=== PATIENT | female | born 1965 | race Caucasian/White ===

== ENCOUNTER 2019-11-06 20:23 | Emergency (ER) | payer BC, SELFPAY ==
[2019-11-06] VITALS (26 sets, daily range): BP systolic 165–167; BP diastolic 79–98; PULSE 105; RESP 18; O2SAT 92–98; BMI 27.3
--- NOTE | 2019-11-06 20:43 | ED_ITS ---
Entered by Cheryl Duran, acting as scribe for James Oneal DO HPI - URI/Sore Throat General: Chief Complaint: Upper Respiratory Infection Stated Complaint: COUGH W/ BLOOD Time Seen by Provider: 11/06/19 20:43 Source: patient Mode of arrival: ambulatory Limitations: no limitations History of Present Illness: HPI Narrative: 54 yo Female presents to ED with complaint of coughing up blood. Pt states that she has been coughing a lot recently. Pt states that her stomach has been queasy all day and she had multiple, loose bowel movements. Pt states that she was coughing and felt something that felt like a spray bottle on the back of her throat. Pt states that she has some bloody sputum and had blood on her tongue. Pt states that the last time she had symptoms like this, she had pneumonia. MD elicited complaint: cough Onset (ago): day(s) Consistency: progressively worsening Pain scale (0-10): 0 Description of mucous: bloody Able to tolerate fluids by mouth: Yes Exacerbating factors: other (coughing) Relieving factors: nothing Associated symptoms: Reports cough and diarrhea; Deny fever(s), nausea, sore throat or vomiting Treatments prior to arrival: none Review of Systems General: Reports: 10 or more systems reviewed and unremarkable except in HPI and below Const: Denies: fever Resp: Reports: productive cough and coughing up blood GI: Reports: diarrhea; Denies: nausea or vomiting [facility] ED PFSH: Social History Smoking and tobacco status: current every day smoker Physical Exam Const: COMMON NORMALS: no apparent distress, average body habitus, oriented x3, no limitations, healthy appearing, alert and well nourished HENMT: COMMON NORMALS: normocephalic, head/scalp atraumatic, hearing grossly normal bilaterally, external ears normal, EAC's normal, TM's normal bilaterally, external nose normal, nasal mucous membranes and turbinates normal, moist oral mucous membranes, oropharynx normal, dentition normal and gingiva normal HEAD & SCALP: normocephalic and atraumatic NOSE: external nose normal and nasal mucous membranes and turbinates normal EXTERNAL EAR: Yes external ears normal EXTERNAL AUDITORY CANAL: EAC's normal TYMPANIC MEMBRANE: TM's normal bilaterally Eye: COMMON NORMALS: PERRL, EOMs intact bilaterally, conjunctivae normal, no scleral icterus, no papilledema, normal visual ordonez by confrontation and fundi normal bilaterally CONJUNCTIVA: Yes conjunctivae normal PUPIL: Yes PERRL DIRECT OPHTHALMOSCOPY: Yes no papilledema and Yes fundi normal bilaterally Neck/C-Spine: COMMON NORMALS: full ROM, no lymphadenopathy, supple, no meningeal signs, no JVD, thyroid normal and no carotid bruits THYROID: thyroid normal Chest: COMMONS NORMALS: inspection of chest normal and palpation of chest normal Resp: COMMON NORMALS: normal respiratory effort, no retractions, no use of accessory muscles, clear to auscultation bilaterally and percussion normal AUSCULTATION: clear to auscultation bilaterally PERCUSSION: percussion normal Cardio: COMMON NORMALS: no JVD, regular rate, regular rhythm, S1 normal heart sound, S2 normal heart sound, no gallops, no clicks, no murmurs, no rub and peripheral pulses 2+ throughout RATE: regular rate RHYTHM: regular rhythm HEART SOUNDS: S1 normal and S2 normal PERIPHERAL PULSES: pulses 2+ throughout GI: COMMON NORMALS: normal to inspection, nondistended, normoactive bowel sounds, soft to palpation, non-tender, no hepatosplenomegaly, no masses and no bruits PALPATION: Yes soft and Yes no hepatosplenomegaly : COMMON NORMALS: Yes no CVA tenderness and Yes external appearance normal BLADDER/KIDNEY EXAM: Yes no CVA tenderness Back/Pelvis: COMMON NORMALS: no CVA tenderness, thoracic and lumbar spine normal to inspection, no thoracic nor lumbar tenderness, thoraco-lumbar ROM normal and straight leg raise negative bilaterally Extremity: COMMON NORMALS: normal to inspection, full ROM, normal capillary refill, no joint enlargement, no clubbing, cyanosis or edema, no calf tenderness and no pedal edema Neuro: COMMON NORMALS: oriented x3 SENSORIUM/ORIENTATION: Yes alert MENINGEAL SIGNS: Yes no meningeal signs Skin: COMMON NORMALS: no rashes or lesions noted, no wounds, skin turgor normal, no jaundice, no petechiae and no mottling GENERAL SKIN EXAM: no rashes or lesions noted and turgor normal Course Vital Signs: Vital signs: Vital Signs Pulse Rate 105 H 11/06/19 20:43 Respiratory Rate 18 11/06/19 20:43 Blood Pressure 167/98 11/06/19 20:43 Pulse Oximetry 97 11/06/19 20:43 MDM - URI/Sore Throat Lab Data: Labs: Lab Results 11/06/19 11/06/19 11/06/19 Range/Units 20:50 20:50 20:50 WBC 13.6 H (4.0-10.0) 10^3/ uL RBC 4.75 (4.1-5.3) 10^6/u L Hgb 14.4 (11.5-15.3) g/dL Hct 43.0 (37.0-47.0) % MCV 90.5 (81-99) fL MCH 30.3 (28.0-34.0) pg MCHC 33.5 (30.0-36.0) g/dL RDW 12.7 (12.1-15.1) % Plt Count 396 (130-400) 10^3/c mm MPV 9.1 (7.4-10.4) fL Neut % (Auto) 62.9 % Lymph % (Auto) 26.1 % [place] % (Auto) 7.1 % Eos % (Auto) 2.3 % Baso % (Auto) 1.2 % Neut # (Auto) 8.5 H (1.8-7.7) 10^3/u L Lymph # (Auto) 3.5 (0.8-4.8) 10^3/u L [place] # (Auto) 1.0 H (0.2-0.9) 10^3/u L Eos # (Auto) 0.3 (0.0-0.8) 10^3/u L Baso # (Auto) 0.2 H (0.0-0.1) 10^3/u L Nucleated RBC % (a uto) 0 % Nucleated RBCs # 0.0 /100WBC Sodium 139 (136-145) mmol/L Potassium 3.8 (3.5-5.1) mmol/L Chloride 101 (98-107) mmol/L Carbon Dioxide 26 (22-29) mmol/L Anion Gap 15.8 (5-19) BUN 8 (6-20) mg/dL Creatinine 0.8 (0.5-0.9) mg/dL GFR Calculation 74.7 L (90-130) mL/min Glucose 125 H (65-115) mg/dL Calculated Osmolal ity 285 (285-295) mOsm/k g Lactate 1.0 (0.5-2.2) mmol/L Calcium 9.9 (8.5-10.5) mg/dL Total Bilirubin 0.2 (0.15-1.2) mg/dL AST 18 (0-32) U/L ALT 20 (0-33) U/L Alkaline Phosphata se 92 (35-105) IU/L Total Protein 7.2 (6.6-8.7) g/dL Albumin 4.6 (3.5-5.2) g/dL Globulin 2.6 (1.3-4.6) g/dL Influenza Type A A g (Negative) POC Influenza B Ag (Negative) 11/06/19 Range/Units 20:50 WBC (4.0-10.0) 10^3/ uL RBC (4.1-5.3) 10^6/u L Hgb (11.5-15.3) g/dL Hct (37.0-47.0) % MCV (81-99) fL MCH (28.0-34.0) pg MCHC (30.0-36.0) g/dL RDW (12.1-15.1) % Plt Count (130-400) 10^3/c mm MPV (7.4-10.4) fL Neut % (Auto) % Lymph % (Auto) % [place] % (Auto) % Eos % (Auto) % Baso % (Auto) % Neut # (Auto) (1.8-7.7) 10^3/u L Lymph # (Auto) (0.8-4.8) 10^3/u L [place] # (Auto) (0.2-0.9) 10^3/u L Eos # (Auto) (0.0-0.8) 10^3/u L Baso # (Auto) (0.0-0.1) 10^3/u L Nucleated RBC % (a uto) % Nucleated RBCs # /100WBC Sodium (136-145) mmol/L Potassium (3.5-5.1) mmol/L Chloride (98-107) mmol/L Carbon Dioxide (22-29) mmol/L Anion Gap (5-19) BUN (6-20) mg/dL Creatinine (0.5-0.9) mg/dL GFR Calculation (90-130) mL/min Glucose (65-115) mg/dL Calculated Osmolal ity (285-295) mOsm/k g Lactate (0.5-2.2) mmol/L Calcium (8.5-10.5) mg/dL Total Bilirubin (0.15-1.2) mg/dL AST (0-32) U/L ALT (0-33) U/L Alkaline Phosphata se (35-105) IU/L Total Protein (6.6-8.7) g/dL Albumin (3.5-5.2) g/dL Globulin (1.3-4.6) g/dL Influenza Type A A g Negative (Negative) POC Influenza B Ag Negative (Negative) Discharge Plan Discharge Patient Disposition: Home, Self-Care Clinical Impression: Cough with hemoptysis, Bronchitis, COPD (chronic obstructive pulmonary disease) with acute bronchitis Sinusitis Qualifiers: Sinusitis location: maxillary Chronicity: acute Recurrence: non-recurrent Qualified Code(s): J01.00 - Acute maxillary sinusitis, unspecified Upper respiratory infection Qualifiers: URI type: unspecified URI Qualified Code(s): J06.9 - Acute upper respiratory infection, unspecified Condition: Stable Prescriptions: New clindamycin HCl 300 mg capsule 300 mg PO Q6H 10 Days Qty: 40 RF: 0 prednisone 10 mg tablets,dose pack See Rx Instructions .ROUTE .COMPLEX Qty: 21 RF: 0 albuterol sulfate 90 mcg/actuation HFA aerosol inhaler 2 inh INHALATION Q6H PRN (Reason: shortness of breath or wheezing) Qty: 8.5 RF: 0 Discharge Orders: Discharge Order (Routine); Ordered 11/06/19 Ordered By: James Oneal Referrals: Yakov Edwards MD [Family Provider] - Patient Instructions: Acute Bronchitis (ED), Acute Hemoptysis (ED) Coding Level of Care Code ED Rn Interventional for Chg Fwd Exam Comprehensive The documentation recorded by the Roger martinez Carmen, accurately reflects the service I personally performed and the decisions made by Kimmy cerna Donald P, Nov 06, 2019 20:23
--- NOTE | 2019-11-06 20:43 | XRR_ITS ---
PROCEDURE INFORMATION: Exam: XR Chest, 1 View Exam date and time: 11/06/2019 9:34 PM Age: 54 years old Clinical indication: Patient HX: C/O cough, scratchy throat and bloody sputum TECHNIQUE: Imaging protocol: XR of the chest Views: 1 view. COMPARISON: CR Chest 2 views* [id number] 10/12/2014 9:11 AM FINDINGS: Lungs: Unremarkable. No consolidation. Pleural space: Unremarkable. No pleural effusion. No pneumothorax. Heart/Mediastinum: Unremarkable. No cardiomegaly. Bones/joints: Unremarkable. XR/XR chest 1V portable [id number] IMPRESSION: No acute findings.
--- NOTE | 2019-11-06 21:04 | CTR_ITS ---
PROCEDURE INFORMATION: Exam: CT Neck With Contrast Exam date and time: 11/06/2019 9:21 PM Age: 54 years old Clinical indication: Patient HX: C/O scratchy throat and bloody sputum; Additional info: Hemoptysis TECHNIQUE: Imaging protocol: Computed tomography images of the neck with intravenous contrast. Total DLP: 661.96 mGy-cm Radiation optimization: All CT scans at this facility use at least one of these dose optimization techniques: automated exposure control; mA and/or kV adjustment per patient size (includes targeted exams where dose is matched to clinical indication); or iterative reconstruction. Contrast material: OMNI 300; Contrast volume: 95 ml; Contrast route: 22G; COMPARISON: No relevant prior studies available. FINDINGS: Sinuses: Inflammatory changes in the right maxillary and right sphenoid sinuses. Nasopharynx: Unremarkable. Oropharynx: Calcifications or calculi within the left tonsil. The bilateral tonsils appear mildly prominent in size. Hypopharynx: Unremarkable. Larynx: Unremarkable. Normal epiglottis. Retropharyngeal space: Unremarkable. Submandibular/Parotid glands: Normal. Glands are normal in size. Thyroid: Normal. No enlarged or calcified nodules. Lymph nodes: Mediastinal lymph nodes measuring up to 1.0 cm short axis are most likely reactive. Trachea: Visualized trachea is unremarkable. Lungs: Severe centrilobular emphysema. Patchy airspace opacities in both upper lobes, right greater than left. Dental: Multiple missing upper and lower teeth. Bones/joints: Unremarkable. No acute fracture. Soft tissues: Unremarkable. CT/CT neck w con* [id number] IMPRESSION: 1. Mild symmetric prominence of the palatine tonsils could be infectious or inflammatory. 2. Patchy opacities in both upper lobes is most likely multifocal pneumonia. 3. Prominent mediastinal lymph nodes are most likely reactive. 4. Severe emphysema. Radiation Dose CTDIVOL = (mGy): DLP = 661.96 (mGy-cm)
[2019-11-06 21:22] LABS: Basophils # 0.2 10^3/uL (0.0-0.1); Basophils % 1.2 %; Eosinophils # 0.3 10^3/uL (0.0-0.8); Eosinophils % 2.3 %; Hemoglobin 14.4 g/dL (11.5-15.3); Lymphocytes # 3.5 10^3/uL (0.8-4.8); Lymphocytes % 26.1 %; Mean Corpuscular HGB Conc 33.5 g/dL (30.0-36.0); Mean Corpuscular Hemoglobin 30.3 pg (28.0-34.0); Mean Corpuscular Volume 90.5 fL (81-99); Mean Platelet Volume 9.1 fL (7.4-10.4); Monocytes % 7.1 %; Neutrophils # 8.5 10^3/uL (1.8-7.7); Neutrophils % 62.9 %; Nucleated Red Blood Cells % 0 %; Platelet Count 396 10^3/cmm (130-400); Red Blood Count 4.75 10^6/uL (4.1-5.3); Red Cell Distribution Width 12.7 % (12.1-15.1); White Blood Count 13.6 10^3/uL (4.0-10.0)
[2019-11-06] MEDS: iohexol 300 mg/mL 100 mL Btl IV (21:29)
[2019-11-06 21:32] LABS: Influenza A by IFA Negative (Negative); Influenza B by IFA Negative (Negative)
[2019-11-06 21:37] LABS: Alanine Aminotransferase 20 U/L (0-33); Albumin Level 4.6 g/dL (3.5-5.2); Alkaline Phosphatase 92 IU/L (35-105); Anion Gap 15.8 (5-19); Aspartate Amino Transferase 18 U/L (0-32); Blood Urea Nitrogen 8 mg/dL (6-20); Calcium 9.9 mg/dL (8.5-10.5); Carbon Dioxide 26 mmol/L (22-29); Chloride 101 mmol/L (98-107); Globulin 2.6 g/dL (1.3-4.6); Glomerular Filtration Rate 74.7 mL/min (90-130); Glucose 125 mg/dL (65-115); Osmolality Calculated 285 mOsm/kg (285-295); Potassium 3.8 mmol/L (3.5-5.1); Sodium 139 mmol/L (136-145); Total Bilirubin 0.2 mg/dL (0.15-1.2); Total Protein 7.2 g/dL (6.6-8.7)
[2019-11-06 22:12] LABS: Add Urine Microscopic? YES; Bilirubin Urine Neg (NEGATIVE); Blood Urine 2+ (Negative); Glucose Urine UA Norm (Normal); Ketones Urine Negative (Negative); Leukocyte Esterase Urine Negative (Negative); Nitrate Urine Negative (Negative); Protein Urine Neg (Negative); Urine Appearance Clear (CLEAR); Urine Color Straw (Yellow); Urobilinogen Urine Norm (Negative); pH Urine 8 (5-7)
[2019-11-06 22:13] LABS: Bacteria Urine TRACE; RBC Urine RARE /hpf (0-2); Squamous Epithelial Cell Urine RARE (0-5); Sulfosalicylic Acid Urine Negative; WBC Urine RARE /hpf (0-5)
[2019-11-06] MEDS: clindamycin 300 MG/50 ML PREMIX 100 MG IV (22:55)
== END 2019-11-06 23:40 | disposition home or self-care (01) ==
PROVIDERS: Emergency Provider Family Medicine; Family Provider Family Medicine
DX: R04.2 Hemoptysis (principal); J01.00 Acute maxillary sinusitis, unspecified; J06.9 Acute upper respiratory infection, unspecified; J43.9 Emphysema, unspecified
CPT/HCPCS: 12345; 70491; 71045; 80053; 81001; 83605; 85025; 87040; 87804; 96360; 96361; 96365; 99283; 99284; J3490; Q9967

== ENCOUNTER 2019-11-10 12:54 | Outpatient (CLI) | payer BC, SELFPAY ==
--- NOTE | 2019-11-10 13:09 | XR_ITS ---
WS: [id number] XR chest 2V* [id number] REASON FOR EXAM: ACUTE BRONCHITIS, HEMOPTYSIS FINDINGS: The heart and mediastinal interfaces normal. The lung ordonez are well aerated. There is no pneumonia, pleural effusion, pulmonary edema, mass effe ct, The hilum and apices normal. No osseous abnormalities seen. XR/XR chest 2V* [id number] IMPRESSION: Negative chest for acute pathology.
== END 2019-11-10 12:55 | disposition home or self-care (01) ==
LOC: RADWPI 13:06
PROVIDERS: Family Provider Family Medicine; PCP Family Medicine; Visit Provider Nurse Practitioner Family
DX: J20.9 Acute bronchitis, unspecified (principal); R04.2 Hemoptysis
CPT/HCPCS: 71046

== ENCOUNTER 2019-11-10 17:21 | Emergency (ER) | payer BC, SELFPAY ==
[2019-11-10 17:46] VITALS: BP 167/98; PULSE 104; RESP 16; TEMP 37.1; O2SAT 96; BMI 28.3
--- NOTE | 2019-11-10 18:05 | ED_ITS ---
HPI - URI/Sore Throat General: Chief Complaint: General Medical Stated Complaint: Coughing up blood Time Seen by Provider: 11/10/19 17:58 Source: patient Mode of arrival: ambulatory Limitations: no limitations History of Present Illness: HPI Narrative: Patient is a 54-year-old female who presents to ED today with complaints of coughing up blood. Patient tells me she began having a cough approximately two week ago. She was seen here 4 days ago and diagnosed with bronchitis and placed on clindamycin, albuterol, and prednisone. CXR at that visit was negative. She did receive a CT neck (apparently was complaining more of scratchy throat) which showed: 1. Mild symmetric prominence of the palatine tonsils could be infectious or inflammatory. 2. Patchy opacities in both upper lobes is most likely multifocal pneumonia. 3. Prominent mediastinal lymph nodes are most likely reactive. 4. Severe emphysema. Patient reports the clindamycin is making her itch and the hemoptysis is worsening. She does not report shortness of breath unless she is coughing. She has not had any recent surgeries, no recent long travel, no hormonal therapy, no swelling to her lower extremities. Associated symptoms: Deny abdominal pain, chills, chest pain, diarrhea, fever(s), headache(s), nasal congestion, nausea or vomiting Review of Systems Const: Denies: fever, chills, body aches, change in appetite, change in weight , fatigue or malaise Eyes: Denies: change in vision, blurry vision or photophobia ENMT: Denies: throat pain, enlarged tonsils, painful swallowing, nasal discharge or nasal congestion Card: Denies: chest pain, palpitations, irregular heart rhythm, edema, swelling of feet/ankles, lightheadedness, syncope, pre-syncope, shortness of breath on exertion, shortness of breath when lying down or leg pain with exertion Resp: Reports: shortness of breath (only when coughing per patient), productive cough, change in phlegm color, coughing up blood and chest congestion; Denies: pain on inspiration GI: Denies: abdominal pain, nausea, vomiting or diarrhea : Denies: flank pain, difficulty urinating, painful urination, urinary frequency or urinary urgency Musc: Denies: neck pain or back pain Skin/Breast: Denies: rash Neuro: Denies: headache, numbness in extremities, weakness in extremities or changes in sensation PFSH ED PFSH: Social History Smoking and tobacco status: current every day smoker Physical Exam Const: COMMON NORMALS: average body habitus, oriented x3, no limitations, healthy appearing, alert and well nourished OTHER: pt at one point during exam went to sink after hard spell of coughing and bright red hemoptysis was noted HENMT: COMMON NORMALS: normocephalic, head/scalp atraumatic, hearing grossly normal bilaterally, external ears normal, EAC's normal, TM's normal bilaterally, external nose normal, nasal mucous membranes and turbinates normal, moist oral mucous membranes, oropharynx normal and gingiva normal HEAD & SCALP: normocephalic and atraumatic NOSE: external nose normal and nasal mucous membranes and turbinates normal EXTERNAL EAR: Yes external ears normal EXTERNAL AUDITORY CANAL: EAC's normal TYMPANIC MEMBRANE: TM's normal bilaterally MOUTH: other (dental bridge to top) Eye: COMMON NORMALS: PERRL and EOMs intact bilaterally PUPIL: Yes PERRL Resp: COMMON NORMALS: normal respiratory effort and clear to auscultation bilaterally AUSCULTATION: clear to auscultation bilaterally Cardio: COMMON NORMALS: regular rate and regular rhythm RATE: regular rate RHYTHM: regular rhythm GI: COMMON NORMALS: normal to inspection, nondistended, normoactive bowel sounds, soft to palpation, non-tender, no hepatosplenomegaly and no masses PALPATION: Yes soft and Yes no hepatosplenomegaly Extremity: COMMON NORMALS: normal to inspection, full ROM, no clubbing, cyanosis or edema, no calf tenderness and no pedal edema Neuro: COMMON NORMALS: oriented x3 SENSORIUM/ORIENTATION: Yes alert Skin: COMMON NORMALS: no rashes or lesions noted GENERAL SKIN EXAM: no rashes or lesions noted Course Vital Signs: Vital signs: Vital Signs Temperature 98.7 F 11/10/19 17:46 Pulse Rate 96 11/10/19 18:33 Respiratory Rate 16 11/10/19 17:46 Blood Pressure 167/98 11/10/19 17:46 Pulse Oximetry 96 11/10/19 18:33 MDM - URI/Sore Throat 2 Lab Data: Labs: Lab Results 11/10/19 11/10/19 Range/Units 18:20 18:20 WBC 9.7 (4.0-10.0) 10^3/ uL RBC 4.43 (4.1-5.3) 10^6/u L Hgb 13.5 (11.5-15.3) g/dL Hct 41.7 (37.0-47.0) % MCV 94.1 (81-99) fL MCH 30.5 (28.0-34.0) pg MCHC 32.4 (30.0-36.0) g/dL RDW 12.0 L (12.1-15.1) % Plt Count 265 (130-400) 10^3/c mm MPV 11.2 H (7.4-10.4) fL Neut % (Auto) 74.4 % Lymph % (Auto) 16.3 % [place] % (Auto) 7.4 % Eos % (Auto) 0.9 % Baso % (Auto) 0.5 % Neut # (Auto) 7.2 (1.8-7.7) 10^3/u L Lymph # (Auto) 1.6 (0.8-4.8) 10^3/u L [place] # (Auto) 0.7 (0.2-0.9) 10^3/u L Eos # (Auto) 0.1 (0.0-0.8) 10^3/u L Baso # (Auto) 0.1 (0.0-0.1) 10^3/u L Nucleated RBC % (a uto) 0 % Nucleated RBCs # 0.0 /100WBC Sodium 144 (136-145) mmol/L Potassium 4.0 (3.5-5.1) mmol/L Chloride 104 (98-107) mmol/L Carbon Dioxide 28 (22-29) mmol/L Anion Gap 16.0 (5-19) BUN 15 (6-20) mg/dL Creatinine 1.0 H (0.5-0.9) mg/dL GFR Calculation 57.8 L (90-130) mL/min Glucose 113 (65-115) mg/dL Calculated Osmolal ity 295 (285-295) mOsm/k g Calcium 9.5 (8.5-10.5) mg/dL Total Bilirubin 0.3 (0.15-1.2) mg/dL AST 16 (0-32) U/L ALT 13 (0-33) U/L Alkaline Phosphata se 76 (35-105) IU/L Total Protein 7.5 (6.6-8.7) g/dL Albumin 4.4 (3.5-5.2) g/dL Globulin 3.1 (1.3-4.6) g/dL Imaging Data^: CXR: Radiologist's impression: [address] [address] XRay Report Signed Patient: Valerie Traylor Unit #: [id number] : 1965 Age/Sex: 54 / F ADM Date: 11/10/19 Loc: [facility] Room/Bed: Attending Dr: Joelle Sterling BEHAVIORAL HEALTH TECH Ordering Provider/Ordering MD: Joelle Sterling RN Date of Service: 11/10/19 Procedure(s): XR chest 2V* [id number] Accession Number(s): [id number] Report Number: [id number] WS: [id number] XR chest 2V* [id number] REASON FOR EXAM: ACUTE BRONCHITIS, HEMOPTYSIS FINDINGS: The heart and mediastinal interfaces normal. The lung ordonez are well aerated. There is no pneumonia, pleural effusion, pulmonary edema, mass effect, The hilum and apices normal. No osseous abnormalities seen. XR/XR chest 2V* [id number] IMPRESSION: Negative chest for acute pathology. Dictated By: Elijah Smith DO Signed By: Eiljah Smith DO Signed Date/Time: 11/10/19 1356 DD/ 1355 Discharge Plan Discharge Patient Disposition: Home, Self-Care Clinical Impression: Bronchitis Condition: Stable Prescriptions: New Levaquin 750 mg tablet 750 mg PO DAILY 7 Days Qty: 7 RF: 0 Discontinued clindamycin HCl 300 mg capsule 300 mg PO Q6H 10 Days Qty: 40 RF: 0 No Action prednisone 10 mg tablets,dose pack See Rx Instructions .ROUTE .COMPLEX Qty: 21 RF: 0 albuterol sulfate 90 mcg/actuation HFA aerosol inhaler 2 inh INHALATION Q6H PRN (Reason: shortness of breath or wheezing) Qty: 8.5 RF: 0 Discharge Orders: Discharge Order (Routine); Ordered 11/10/19 Ordered By: Helen Dale Referrals: Yakov Edwards MD [Primary Care Provider] - Discharge Diet: Usual diet Discharge Activity: Increase activity as tolerated Activity Restrictions/Additional Instructions: As discussed your CXR appears normal. CTA of your chest is negative for pulmonary embolus (blood clot). There was an area of scarring/nodule to your right upper lobe that needs to be followed up through Dr. Edwards's office in 6 to 12 months. I will go ahead and place you on a different antibiotic. You may continue the albuterol and prednisone as directed. Please follow-up with PCP in 3 to 5 days if you do not seem to be improving. He may return to the emergency department anytime for worsening symptoms. Coding Level of Care Code ED Seamer [employer] for Cristal Love Exam Comprehensive
[2019-11-10 18:33] VITALS: PULSE 96; O2SAT 96
[2019-11-10 18:33] LABS: Basophils # 0.1 10^3/uL (0.0-0.1); Basophils % 0.5 %; Eosinophils # 0.1 10^3/uL (0.0-0.8); Eosinophils % 0.9 %; Hematocrit 41.7 % (37.0-47.0); Hemoglobin 13.5 g/dL (11.5-15.3); Lymphocytes # 1.6 10^3/uL (0.8-4.8); Lymphocytes % 16.3 %; Mean Corpuscular HGB Conc 32.4 g/dL (30.0-36.0); Mean Corpuscular Hemoglobin 30.5 pg (28.0-34.0); Mean Corpuscular Volume 94.1 fL (81-99); Mean Platelet Volume 11.2 fL (7.4-10.4); Monocytes # 0.7 10^3/uL (0.2-0.9); Monocytes % 7.4 %; Neutrophils # 7.2 10^3/uL (1.8-7.7); Neutrophils % 74.4 %; Nucleated Red Blood Cells % 0 %; Platelet Count 265 10^3/cmm (130-400); Red Blood Count 4.43 10^6/uL (4.1-5.3); White Blood Count 9.7 10^3/uL (4.0-10.0)
[2019-11-10 18:51] LABS: Alanine Aminotransferase 13 U/L (0-33); Albumin Level 4.4 g/dL (3.5-5.2); Alkaline Phosphatase 76 IU/L (35-105); Aspartate Amino Transferase 16 U/L (0-32); Blood Urea Nitrogen 15 mg/dL (6-20); Calcium 9.5 mg/dL (8.5-10.5); Carbon Dioxide 28 mmol/L (22-29); Chloride 104 mmol/L (98-107); Globulin 3.1 g/dL (1.3-4.6); Glomerular Filtration Rate 57.8 mL/min (90-130); Glucose 113 mg/dL (65-115); Osmolality Calculated 295 mOsm/kg (285-295); Sodium 144 mmol/L (136-145); Total Bilirubin 0.3 mg/dL (0.15-1.2); Total Protein 7.5 g/dL (6.6-8.7)
--- NOTE | 2019-11-10 19:00 | CTR_ITS ---
PROCEDURE INFORMATION: Exam: CT Angiography Chest With Contrast Exam date and time: 11/10/2019 7:39 PM Age: 54 years old Clinical indication: Shortness of breath; Additional info: Hemoptysis; Cough; SOB TECHNIQUE: Imaging protocol: Computed tomographic angiography of the chest with intravenous contrast. 3D rendering: MIP and/or 3D reconstructed images were created by the technologist. Total DLP: 609.51 mGy-cm Radiation optimization: All CT scans at this facility use at least one of these dose optimization techniques: automated exposure control; mA and/or kV adjustment per patient size (includes targeted exams where dose is matched to clinical indication); or iterative reconstruction. Contrast material: OMNI 350; Contrast volume: 95 ml; Contrast route: LT FOREARM; COMPARISON: CTA Chest-Pulmonary Emb [id number] 10/04/2014 5:09 PM FINDINGS: Pulmonary arteries: There is no evidence of filling defects within the pulmonary arterial circulation to suggest pulmonary embolism. Aorta: Unremarkable. No aortic aneurysm. No aortic dissection. Lungs: There are advanced changes of centrilobular emphysema in the apical regions. There is some mild scarring in the right upper lobe which is new from 10/04/2014 including a 6 mm mm nodule like area such as on axial image number 17 of series 3. Pleural space: Unremarkable. No pneumothorax. No pleural effusion. Heart: Unremarkable. No cardiomegaly. No pericardial effusion. Lymph nodes: Unremarkable. No enlarged lymph nodes. Bones/joints: Unremarkable. No acute fracture. Soft tissues: Unremarkable. CT/CT angio chest PE protcl [id number] IMPRESSION: 1. No evidence of pulmonary embolism. 2. COPD. 3. New nodular area of scarring in the right upper lobe. For patients at low risk (minimal or absent history of smoking and of other known risk factors), recommend CT at 6-12 months, then consider CT at 18-24 months. For patients at high risk (history of smoking or of other known risk factors), recommend CT at 6-12 months, then CT at 18-24 months. (Lizett et al., Fleischner Society, 2017) Radiation Dose CTDIVOL = (mGy): DLP = 609.51 (mGy-cm)
[2019-11-10] MEDS: iohexol 350 mg/mL 100 mL Btl IV (19:55)
[2019-11-10] MEDS: levoFLOXacin 750 mg Tablet PO (20:40)
--- NOTE | 2019-11-10 20:57 | PC.NURSE ---
Agree with assessment.
[2019-11-10 20:58] VITALS: BP 153/83; PULSE 81; RESP 18; TEMP 37.1; O2SAT 96
== END 2019-11-10 20:58 | disposition home or self-care (01) ==
PROVIDERS: Emergency Provider Physician Assistant; Family Provider Family Medicine; PCP Family Medicine
DX: J40 Bronchitis, not specified as acute or chronic (principal); F17.210 Nicotine dependence, cigarettes, uncomplicated; J98.4 Other disorders of lung; J43.9 Emphysema, unspecified
CPT/HCPCS: 12345; 36415; 71275; 80053; 85025; 99282; 99283; Q9967

== ENCOUNTER 2020-02-08 19:36 | Emergency (ER) | payer BC, SELFPAY ==
[2020-02-08 19:42] VITALS: BP 158/85; PULSE 89; RESP 16; TEMP 36.3; O2SAT 97; BMI 28.3
--- NOTE | 2020-02-08 19:55 | XR_ITS ---
WS: [id number] XR KUB [id number] REASON FOR EXAM: abd pain FINDINGS: Nonspecific gas and feces throughout the colon are seen. No unusual calcifications the region of the kidneys, ureters, or bladder. No air-fluid levels. XR/XR KUB [id number] IMPRESSION: Negative abdominal survey.
--- NOTE | 2020-02-08 19:55 | US_ITS ---
WS: [id number] ABDOMINAL ULTRASOUND LIMITED REASON FOR VISIT: abd pain TECHNIQUE: Grayscale and Doppler ultrasound examination of the abdomen. FINDINGS: Pancreas: Within normal limits Abdominal aorta and IVC: Within normal limits Liver: Liver measures 12.1 cm in length. Normal hepatopedal circulation. Gallbladder: Gallbladder wall thickness measures 0.2 mm. No stones, common bile duct 0.21 cm. Right kidney: Right kidney measures 10.5 cm x 5.1 cm x 4.3 cm. No hydronephrosis no calcification. US/US gall bladder [id number] IMPRESSION: Normal right upper quadrant ultrasound.
--- NOTE | 2020-02-08 19:58 | W.ED.NAVMDI ---
HPI - Nausea/Vomiting/Diarrhea General: Chief complaint: Nausea/Vomiting/Diarrhea Stated complaint: diarrhea, general pain Time Seen by Provider: 02/08/20 19:45 Source: patient Mode of arrival: ambulatory History of Present Illness: HPI Narrative: 55-year-old female states for last 2 weeks she has had abdominal cramping especially in her upper abdomen. She states she is also had diarrhea that is worsened. She denies any fevers. She states her pain is currently crampy in nature and rates it a 2 out of 10. She denies any worsening or improving factors. MD elicited complaint: nausea, vomiting and abdominal pain Associated nausea: Yes Associated symtoms: Reports nausea; Denies chest pain, dysuria or headache(s) Review of Systems Const: Denies: fever(s), chills, body aches or change in appetite Eyes: Denies: blurry vision or eye discomfort ENMT: Denies: throat pain or dental pain Card: Denies: chest pain Resp: Denies: dyspnea GI: Reports: abdominal pain, nausea and vomiting; Denies: diarrhea : Denies: dysuria Musc: Denies: neck pain or back pain Skin/Breast: Denies: rash Neuro: Denies: headache(s) Psych: Denies: depression Ulisses/Lymph: Denies: easy bruising All/Imm: Denies: urticaria PFSH ED PFSH: Medical History GERD (gastroesophageal reflux disease) Hyperlipidemia Surgical History H/O sinus surgery Hx of section Family History Father Lung disease COPD Social History Smoking and tobacco status: current every day smoker cigarettes Packs smoked per day: 0.5 Years cigarettes smoked: 35 Quit status (tobacco): considering quitting Smoking risk assessment/counseling performed?: Yes Alcohol intake: never Lives independently: Yes Current occupational status: employed 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 Current occupational exposures/hazards: 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) History of recent travel: No Current gender identity: Female Physical Exam Const: COMMON NORMALS: no acute distress, patient oriented x3 and healthy appearing HENMT: COMMON NORMALS: normocephalic and atraumatic HEAD & SCALP: normocephalic and atraumatic Eye: COMMON NORMALS: Equal, round and reactive pupils present and EOMs intact bilaterally PUPIL: Yes Equal, round and reactive pupils present Neck/C-Spine: COMMON NORMALS: full ROM and supple Chest: COMMONS NORMALS: normal inspection of the chest and normal palpation of entire chest wall Resp: COMMON NORMALS: normal respiratory effort, No retractions, No use of accessory muscles and clear to auscultation bilaterally AUSCULTATION: clear to auscultation bilaterally Cardio: COMMON NORMALS: regular rate, regular rhythm and No murmurs present (Cardio) RATE: regular rate RHYTHM: regular rhythm GI: COMMON NORMALS: Normal to inspection, nondistended, normoactive bowel sounds present, Soft to palpation, non-tender and no masses PALPATION: Yes Soft to palpation Extremity: COMMON NORMALS: normal to inspection and full ROM Neuro: COMMON NORMALS: patient oriented x3, moves all extremities and no focal motor deficits Psych: COMMON NORMALS: mental status grossly normal, Normal thought process present and cooperative THOUGHT PROCESS: Normal thought process present Skin: COMMON NORMALS: no rashes or lesions noted and no wounds GENERAL SKIN EXAM: no rashes or lesions noted Course Vital Signs: Vital signs: Vital Signs Temperature 98.4 F 02/08/20 20:21 Pulse Rate 79 02/08/20 21:15 Respiratory Rate 14 02/08/20 21:15 Blood Pressure 140/99 02/08/20 21:15 Pulse Oximetry 97 02/08/20 21:15 MDM - Nausea/Vomiting/Diarrhea MDM Narrative: Medical decision making narrative: Valerie presents here with diarrhea and abdominal cramping over the last 2 weeks. Her ultrasound along with lab work are normal. Initial and repeat abdominal exams are benign. Patient prescribed Bentyl along with Zofran and is to follow-up with primary care doctor in 3 to 5 days return if worsening. Patient understands and agrees to plan. Lab Data: Labs: Lab Results 02/08/20 02/08/20 Range/Units 20:15 20:15 WBC 10.6 H (4.0-10.0) 10^3/ uL RBC 4.56 (4.1-5.3) 10^6/u L Hgb 13.6 (11.5-15.3) g/dL Hct 41.3 (37.0-47.0) % MCV 90.6 (81-99) fL MCH 29.8 (28.0-34.0) pg MCHC 32.9 (30.0-36.0) g/dL RDW 12.6 (12.1-15.1) % Plt Count 371 (130-400) 10^3/c mm MPV 9.3 (7.4-10.4) fL Neut % (Auto) 60.5 % Lymph % (Auto) 28.4 % Dent % (Auto) 7.7 % Eos % (Auto) 2.0 % Baso % (Auto) 0.9 % Neut # (Auto) 6.4 (1.8-7.7) 10^3/u L Lymph # (Auto) 3.0 (0.8-4.8) 10^3/u L Dent # (Auto) 0.8 (0.2-0.9) 10^3/u L Eos # (Auto) 0.2 (0.0-0.8) 10^3/u L Baso # (Auto) 0.1 (0.0-0.1) 10^3/u L Nucleated RBC % (a uto) 0 % Nucleated RBCs # 0.0 /100WBC Sodium 142 (136-145) mmol/L Potassium 3.8 (3.5-5.1) mmol/L Chloride 105 (98-107) mmol/L Carbon Dioxide 25 (22-29) mmol/L Anion Gap 15.8 (5-19) BUN 8 (6-20) mg/dL Creatinine 0.8 (0.5-0.9) mg/dL GFR Calculation 74.5 L (90-130) mL/min Glucose 146 H (65-115) mg/dL Calculated Osmolal ity 293 (285-295) mOsm/k g Calcium 9.5 (8.5-10.5) mg/dL Total Bilirubin 0.2 (0.15-1.2) mg/dL AST 17 (0-32) U/L ALT 13 (0-33) U/L Alkaline Phosphata se 83 (35-105) IU/L Total Protein 6.5 L (6.6-8.7) g/dL Albumin 4.3 (3.5-5.2) g/dL Globulin 2.2 (1.3-4.6) g/dL Lipase 41 (13-60) U/L Imaging Data^: KUB: Attestation: I personally reviewed and interpreted this imaging study as follows: My impression: no acute abnormality US: Attestation: I personally reviewed and interpreted this imaging study as follows: My impression: no acute findings Discharge Plan Discharge Patient Disposition: Home, Self-Care Clinical Impression: Abdominal pain Qualifiers: Abdominal location: generalized Qualified Code(s): R10.84 - Generalized abdominal pain Diarrhea Qualifiers: Diarrhea type: unspecified type Qualified Code(s): R19.7 - Diarrhea, unspecified Condition: Stable Prescriptions: New ondansetron 4 mg tablet,disintegrating 4 mg PO Q6H PRN (Reason: nausea and vomiting) Qty: 14 RF: 0 dicyclomine 20 mg tablet 20 mg PO TID Qty: 20 RF: 1 No Action omeprazole 20 mg tablet,delayed release (DR/EC) 20 mg PO DAILY RF: 0 atorvastatin 10 mg tablet 10 mg PO DAILY RF: 0 Multiple Vitamin, Womens Tablet 1 tab PO DAILY RF: 0 Spiriva with HandiHaler 18 mcg capsule, w/inhalation device 1 cap INHALATION DAILY 180 Days Qty: 60 RF: 6 Discharge Orders: Discharge Order (Routine); Ordered 02/08/20 Ordered By: Alfred Stevens Referrals: Yakov Edwards MD [Primary Care Provider] - 1-3 days Discharge Diet: Advance as tolerated Discharge Activity: Resume usual activity Patient Instructions: Abdominal Pain (ED) Discharge Date/Time: 02/08/20 21:16 Coding Level of Care Code ED Dry Goods Clerk for Chg Fwd Exam Comprehensive
[2020-02-08] MEDS: diphenoxylate/atropine Tablet 1 TAB PO (20:14)
[2020-02-08] MEDS: ondansetron 2 mg/ML SDV 2 mL 4 MG IVP (20:14)
[2020-02-08] MEDS: sodium chloride 0.9% 1,000 ML 999 ML IV (20:15)
[2020-02-08 20:21] VITALS: BP 148/74; PULSE 95; RESP 18; TEMP 36.9; O2SAT 97
[2020-02-08 20:32] LABS: Basophils # 0.1 10^3/uL (0.0-0.1); Basophils % 0.9 %; Eosinophils # 0.2 10^3/uL (0.0-0.8); Hematocrit 41.3 % (37.0-47.0); Hemoglobin 13.6 g/dL (11.5-15.3); Lymphocytes % 28.4 %; Mean Corpuscular HGB Conc 32.9 g/dL (30.0-36.0); Mean Corpuscular Hemoglobin 29.8 pg (28.0-34.0); Mean Corpuscular Volume 90.6 fL (81-99); Mean Platelet Volume 9.3 fL (7.4-10.4); Monocytes # 0.8 10^3/uL (0.2-0.9); Monocytes % 7.7 %; Neutrophils # 6.4 10^3/uL (1.8-7.7); Neutrophils % 60.5 %; Nucleated Red Blood Cells % 0 %; Platelet Count 371 10^3/cmm (130-400); Red Blood Count 4.56 10^6/uL (4.1-5.3); Red Cell Distribution Width 12.6 % (12.1-15.1); White Blood Count 10.6 10^3/uL (4.0-10.0)
[2020-02-08 20:43] LABS: Alanine Aminotransferase 13 U/L (0-33); Albumin Level 4.3 g/dL (3.5-5.2); Alkaline Phosphatase 83 IU/L (35-105); Anion Gap 15.8 (5-19); Aspartate Amino Transferase 17 U/L (0-32); Blood Urea Nitrogen 8 mg/dL (6-20); Calcium 9.5 mg/dL (8.5-10.5); Carbon Dioxide 25 mmol/L (22-29); Chloride 105 mmol/L (98-107); Globulin 2.2 g/dL (1.3-4.6); Glomerular Filtration Rate 74.5 mL/min (90-130); Glucose 146 mg/dL (65-115); Lipase 41 U/L (13-60); Osmolality Calculated 293 mOsm/kg (285-295); Potassium 3.8 mmol/L (3.5-5.1); Sodium 142 mmol/L (136-145); Total Bilirubin 0.2 mg/dL (0.15-1.2); Total Protein 6.5 g/dL (6.6-8.7)
[2020-02-08 21:15] VITALS: BP 140/99; PULSE 79; RESP 14; O2SAT 97
== END 2020-02-08 21:16 | disposition home or self-care (01) ==
PROVIDERS: Emergency Provider Emergency Medicine; Family Provider Family Medicine; PCP Family Medicine
DX: R10.84 Generalized abdominal pain (principal); R19.7 Diarrhea, unspecified; E78.5 Hyperlipidemia, unspecified; F17.210 Nicotine dependence, cigarettes, uncomplicated
CPT/HCPCS: 12345; 36415; 74018; 76705; 80053; 83690; 85025; 96360; 96361; 96374; 96375; 99283; J2405; J7030

== ENCOUNTER → 2020-04-24 11:31 | Outpatient (BNVA) | payer BC, SELFPAY | PROVIDERS: Family Provider Family Medicine; PCP Family Medicine; Visit Provider Internal Medicine | DX: Z01.812 Encounter for preprocedural laboratory examination (principal) | CPT/HCPCS: 87635 ==

== ENCOUNTER 2020-04-26 12:41 | Outpatient (CLI) | payer BC, SELFPAY ==
--- NOTE | 2020-04-26 13:23 | PFTS_ITS ---
Date of Study:04/26/20 Date of Dictation: MECHANICS: Forced vital capacity (FVC) is normal. Forced expiratory volume in one second (FEV1) is normal. FEV1/FVC is normal. FLOW VOLUME LOOP: Normal. LUNG VOLUMES: Total lung capacity (TLC) is normal. Residual volume (RV) is normal. DIFFUSING CAPACITY FOR CARBON MONOXIDE: Normal. INTERPRETATION: The pulmonary function tests are normal. Lung volumes are normal. Gas exchange (DLCO) is normal. MTDD
== END 2020-04-26 12:42 | disposition home or self-care (01) ==
LOC: RT 12:44
PROVIDERS: PCP Family Medicine; Visit Provider Internal Medicine Critical Care Medicine
DX: J43.9 Emphysema, unspecified (principal)
CPT/HCPCS: 94010; 94726; 94729

== ENCOUNTER 2020-05-29 08:30 | Outpatient (CLI) | payer BC, SELFPAY ==
--- NOTE | 2020-05-29 08:45 | CT_ITS ---
WS: [id number] CT scan of the chest without IV contrast, additional two-dimensional coronal and sagittal reconstruct ion was performed. 05/29/2020 Clinical Data: Right upper lobe pulmonary nodule Comparison: CT chest, 11/10/2019. DLP: 759.[address] scans at [facility] use at least one of these dose optimization techniques: automat ed exposure control; mA and/or kV adjustment per patient size (includes targeted exams where dose is matched to clinical indication); or iterative reconstruction. Findings: No nodules, masses or effusions are seen. Specifically no right upper lobe nodule is seen. There is m inimal right upper lobe parenchymal scarring. The heart size is normal with no pericardial effusion. Minimal coronary artery calcification is seen. The pulmonary arterial system and thoracic aorta demon strate no abnormalities or dilatations. There is no axillary or significant mediastinal adenopathy. The upper abdomen shows no abnormalities. CT/CT chest wo con [id number] Impression: 1. Negative CT scan of the chest. 2. Specifically no right upper lobe nodule is seen. 3. Minimal right upper lobe parenchymal scarring is present.
== END 2020-05-29 08:31 | disposition home or self-care (01) ==
LOC: RADWPI 08:34
PROVIDERS: PCP Family Medicine; Visit Provider Internal Medicine Critical Care Medicine
DX: R91.1 Solitary pulmonary nodule (principal)
CPT/HCPCS: 71250

== ENCOUNTER 2020-08-02 08:09 | Outpatient (CLI) | payer BC, SELFPAY ==
--- NOTE | 2020-08-02 08:20 | MM_ITS ---
WS: [id number] BILATERAL DIGITAL SCREENING MAMMOGRAPHY WITH CAD CLINICAL INFORMATION: SCREENING HISTORY: Screening mammogram. No current complaints. COMPARISON: TECHNIQUE: Bilateral CC and MLO views. FINDINGS: Scattered fibroglandular densities bilaterally. No suspicious focal mass, asymmetry, calcifications, or architectural distortion. No evidence of malignancy. Stable punctate calcifications. MM/[place] [id number] IMPRESSION: BI-RADS: 2-Benign FOLLOW UP: 1 Year Follow-up Recommend return to annual screening mammography.
== END 2020-08-02 08:10 | disposition home or self-care (01) ==
LOC: RADSHAW 08:11
PROVIDERS: PCP Family Medicine; Visit Provider Family Medicine
DX: Z12.31 Encounter for screening mammogram for malignant neoplasm of breast (principal)
CPT/HCPCS: 77067

== ENCOUNTER 2020-09-19 08:26 | Outpatient (CLI) | payer OTHER, SELFPAY ==
--- NOTE | 2020-09-19 08:37 | US_ITS ---
WS: [id number] ULTRASOUND ABDOMEN LIMITED CLINICAL INFORMATION: RUQ ABDOMINAL PAIN COMPARISON: None. FINDINGS: Liver Size: Normal. Craniocaudal length: 15.6 cm. Echogenicity: Normal. Surface nodularity: None. Mass (size and location): None. Bile ducts Intrahepatic ducts: Normal. Common bile duct diameter: 0.3 cm. Gallbladder Normal. Gallstones: None. Gallbladder sludge: None. Gallbladder wall thickening: None. Pericholecystic fluid: None. Sonographic Smiht sign: Absent. Pancreas Normal as visualized. Right kidney: Normal. Hydronephrosis: None. Size: 9.8 cm x 4.6 cm x 3.4 cm. Abdominal aorta and IVC Visualized portions are normal. Ascites: None. US/US gall bladder [id number] IMPRESSION: Normal abdominal ultrasound
== END 2020-09-19 08:27 | disposition home or self-care (01) ==
PROVIDERS: PCP Family Medicine; Visit Provider Family Medicine
DX: R10.11 Right upper quadrant pain (principal)
CPT/HCPCS: 76705

== ENCOUNTER 2021-05-25 08:43 | Outpatient (CLI) | payer OTHER, SELFPAY ==
--- NOTE | 2021-05-25 08:50 | CT_ITS ---
WS: [id number] LDCT LUNG CANCER SCREENING HISTORY: NICOTINE DEPENDENCE TECHNIQUE: Axial imaging performed from the apices to 1 cm below the costophrenic angles. Coronal and sagittal reformats are submitted with axial MIP series. All CT scans at [facility] use at least one of these dose optimization techniques: automated exposure control; mA and/or kV adjustment per patient size (includes targeted exams where dose is matched to clinical indication); or iterativ e reconstruction. DLP: 55.38 mGy.cm DIvol: 1.58 mGy COMPARISON: 05/29/2020 Diagnostic quality: Satisfactory Lung Nodules: 7 mm irregular nodule RIGHT upper lobe, image 99 of series 603. This is best seen on th e lateral projection. This may be an area of focal scar but appears more prominent since 11/10/2019. T here are additional areas of linear scarring in the upper lung field superimposed on background of mo derate centrilobular emphysema. Long-term stability of a 5 mm nodule anteriorly in the RIGHT lung, im age 89 series 3. Lungs: Chronic emphysema. Heart: Normal size. No effusion. Other findings: Normal aorta. Small hiatal hernia. CT/CT lung screening [id number] IMPRESSION: LUNG-RADS: 3-Probably Benign FOLLOW UP: 6 Month LDCT OTHER FINDINGS (S MODIFIER): None.
== END 2021-05-25 08:44 | disposition home or self-care (01) ==
PROVIDERS: PCP Family Medicine; Visit Provider Internal Medicine Critical Care Medicine
DX: Z12.2 Encounter for screening for malignant neoplasm of respiratory organs (principal); F17.210 Nicotine dependence, cigarettes, uncomplicated; K44.9 Diaphragmatic hernia without obstruction or gangrene; J43.9 Emphysema, unspecified
CPT/HCPCS: 71271

== ENCOUNTER 2021-12-12 12:48 | Outpatient (CLI) | payer BC, SELFPAY ==
--- NOTE | 2021-12-12 12:55 | CT_ITS ---
WS: [id number] LDCT LUNG CANCER SCREENING TECHNIQUE: Noncontrast CT of the chest with coronal and sagittal reformatted images. CLINICAL INFORMATION: Nicotine Dependence COMPARISON: CT lung screen May 25, 2021 DLP: 77.29 mGy.cm DIvol: Mean CTDIvol: 1.60 (mGy) All CT scans at [facility] use at least one of these dose optimization techniques: automat ed exposure control; mA and/or kV adjustment per patient size (includes targeted exams where dose is matched to clinical indication); or iterative reconstruction. Is unchanged. No new suspicious pulmonary parenchymal opacities. FINDINGS: Advanced chronic emphysematous changes. Scattered areas of fibrosis. No acute pulmonary infiltrates. Long-term stability 5 mm nodule anteriorly in the RIGHT upper lobe anteriorly with subpleural locatio n. Previously described spiculated nodule in the RIGHT upper lobe anterolaterally measuring 7 mm is u nchanged compared to previous. Additional similar-appearing area of focal parenchymal fibrosis or spi culation measuring 8 mm is also unchanged. Stable parenchymal fibrosis in the posterior RIGHT upper l obe Normal caliber thoracic aorta. No mediastinal or hilar lymphadenopathy. No axillary lymphadenopathy. Adrenal glands are normal. Small esophageal hiatal hernia. Mild thoracic kyphosis. CT/CT lung screening [id number] IMPRESSION: LUNG-RADS: 3-Probably Benign FOLLOW UP: 6 Month LDCT
== END 2021-12-12 12:49 | disposition home or self-care (01) ==
LOC: RAD 12:50
PROVIDERS: PCP Family Medicine; Visit Provider Internal Medicine Critical Care Medicine
DX: Z12.2 Encounter for screening for malignant neoplasm of respiratory organs (principal); F17.210 Nicotine dependence, cigarettes, uncomplicated
CPT/HCPCS: 71271

== ENCOUNTER → 2022-01-24 14:02 | Outpatient (BNVA) | payer BC, MEDICAID, SELFPAY | PROVIDERS: PCP Family Medicine; Visit Provider Family Medicine | DX: R07.9 Chest pain, unspecified (principal) | CPT/HCPCS: 80053; 84484; 85025; 85379 ==

== ENCOUNTER 2022-03-13 08:06 | Outpatient (CLI) | payer BC, MEDICAID, SELFPAY ==
--- NOTE | 2022-03-13 08:10 | MM_ITS ---
WS: [id number] BILATERAL SCREENING DIGITAL BREAST TOMOSYNTHESIS MAMMOGRAM WITH CAD HISTORY: SCREENING COMPARISON: 08/02/2020 and 12/08/2018 Bilateral CC and MLO views with tomosynthesis and synthetic mammography submitted. Computer aided det ection analyzed. Breast composition: There are scattered areas of fibroglandular density. No suspicious masses, microc alcifications or architectural distortion. MM/[place] [id number] IMPRESSION: BI-RADS: 1-Negative FOLLOW UP: 1 Year Follow-up
== END 2022-03-13 08:07 | disposition home or self-care (01) ==
PROVIDERS: PCP Family Medicine; Visit Provider Family Medicine
DX: Z12.31 Encounter for screening mammogram for malignant neoplasm of breast (principal)
CPT/HCPCS: 77063; 77067

== ENCOUNTER 2022-12-16 12:53 | Outpatient (CLI) | payer BC, MEDICAID, SELFPAY ==
--- NOTE | 2022-12-16 13:00 | CT_ITS ---
WS: [id number] LDCT LUNG CANCER SCREENING HISTORY: smoker TECHNIQUE: Axial imaging performed from the apices to 1 cm below the costophrenic angles. Coronal and sagittal reformats are submitted with axial MIP series. All CT scans at [facility] use at least one of these dose optimization techniques: automated exposure control; mA and/or kV adjustment per patient size (includes targeted exams where dose is matched to clinical indication); or iterativ e reconstruction. DLP: 65.42 mGy.cm DIvol: Mean CTDIvol: 1.30 (mGy) COMPARISON: 12/12/2021 Diagnostic quality: Satisfactory Lungs: Severe centrilobular emphysema. Hyperexpanded lungs. There are several new pulmonary nodules s jesi 12/12/2021. Spiculated nodule measures 8 mm RIGHT upper lobe. Additional 6 mm new nodule towards the lingula. 5 mm nodule LEFT lower lobe. 5 mm nodule medial RIGHT lower lobe. 4 mm nodule RIGHT lowe r lobe. Again noted is a spiculated 9 mm nodule RIGHT upper lobe which is probably not changed. Additional un changed 5 mm spiculated nodule RIGHT upper lobe. Focal irregular opacification RIGHT upper lobe measu res 10 mm. There are additional smaller scattered areas of low-attenuation and groundglass attenuatio n which are essentially stable. Heart: Normal size heart with no pericardial effusion.. Other findings: Mild atherosclerosis aorta. Small mediastinal and hilar lymph nodes. Small hiatal her mic. Hepatic steatosis. No adrenal mass. CT/CT lung screening [id number] IMPRESSION: LUNG-RADS: 4A-Probably Suspicious FOLLOW UP: 3 Month LDCT OTHER FINDINGS (S MODIFIER): None. Follow up can be done by [address] or PET/CT imaging. Metastatic or post inflammatory nodules. Consider evaluation also by pulmonology. Severe centrilobular emphysema.
== END 2022-12-16 12:54 | disposition home or self-care (01) ==
LOC: RAD 12:59
PROVIDERS: PCP Family Medicine; Visit Provider Internal Medicine Pulmonary Disease
DX: Z12.2 Encounter for screening for malignant neoplasm of respiratory organs (principal); F17.210 Nicotine dependence, cigarettes, uncomplicated
CPT/HCPCS: 36415; 71271; 82785; 85025; 86003

== ENCOUNTER → 2023-01-13 13:45 | Outpatient (BNVA) | payer BC, MEDICAID, SELFPAY | PROVIDERS: PCP Family Medicine; Visit Provider Nurse Practitioner | DX: R30.0 Dysuria (principal) | CPT/HCPCS: 81000; 87086 ==

== ENCOUNTER 2023-03-18 13:42 | Outpatient (CLI) | payer BC, MEDICAID, SELFPAY ==
--- NOTE | 2023-03-18 14:00 | CTR_ITS ---
PROCEDURE INFORMATION: Exam: CT Chest Without Contrast; Diagnostic Exam date and time: 03/18/2023 2:13 PM Age: 58 years old Clinical indication: Abnormal findings; Abnormal radiologic exam of lung or chest; Additional info: 3 month f/u TECHNIQUE: Imaging protocol: Diagnostic computed tomography of the chest without contrast. Radiation optimization: All CT scans at this facility use at least one of these dose optimization techniques: automated exposure control; mA and/or kV adjustment per patient size (includes targeted exams where dose is matched to clinical indication); or iterative reconstruction. REPORTING DATA: Count of CT and Cardiac NM exams in prior 12 months: This patient has received [address] and 0 known cardiac nuclear medicine studies in the 12 months prior to the current study. COMPARISON: CT lung screening [id number] 12/16/2022 1:16 PM RADIATION DOSE METRICS: Total DLP (mGy-cm): 229.02 FINDINGS: Lungs: Lung windows demonstrate emphysematous change as noted with prior exam. Interval improvement in some of the pulmonary nodules noted in relation to previous exam and interval stability suggested otherwise in remaining pulmonary nodules. There is some component of scarring with emphysematous change. No interval new or increase in size of pulmonary nodule. No consolidation. Pleural spaces: Unremarkable. No pneumothorax. No pleural effusion. Heart: Unremarkable. No cardiomegaly. No pericardial effusion. Lymph nodes: Unremarkable. No enlarged lymph nodes. Vasculature: Unremarkable. No aortic aneurysm. Bones/joints: No acute findings. Soft tissues: Unremarkable. CT/CT chest wo con [id number] IMPRESSION: 1. Emphysematous change with mild scarring. 2. Some of the previously noted pulmonary nodules demonstrate interval improvement while remaining nodules appear stable. For patients at low risk (minimal or absent history of smoking and of other known risk factors), recommend CT Chest at 3-6 months, then consider CT Chest at 18-24 months. For patients at high risk (history of smoking or of other known risk factors), recommend CT Chest at 3-6 months, then CT Chest at 18-24 months. (Reference: Liztet) References: wong Grider al. Guidelines for Management of Incidental Pulmonary Nodules Detected on CT Images: From the Fleischner Society 2017. Radiology. 2017;284(1):228-243. COMMENTS: In the absence of a history or active diagnosis of lung cancer, it is recommended that this patient with emphysema be evaluated for enrollment in a low dose CT lung cancer screening program.
== END 2023-03-18 13:43 | disposition home or self-care (01) ==
PROVIDERS: PCP Family Medicine; Visit Provider Internal Medicine Pulmonary Disease
DX: R91.8 Other nonspecific abnormal finding of lung field (principal); J43.9 Emphysema, unspecified
CPT/HCPCS: 71250

== ENCOUNTER 2023-06-25 13:04 | Outpatient (CLI) | payer BC, MEDICAID, SELFPAY ==
--- NOTE | 2023-06-25 13:30 | MM_ITS ---
WS: [id number] BILATERAL 3D TOMOSYNTHESIS DIGITAL SCREENING MAMMOGRAPHY WITH CAD CLINICAL INFORMATION: right breast lesion HISTORY: Screening mammogram. No current complaints. COMPARISON: 2021 TECHNIQUE: Bilateral CC and MLO views. FINDINGS: Scattered fibroglandular densities bilaterally. Palpable marker RIGHT breast. No underlying parenchym al abnormalities. Ultrasound is pending. A few incidental punctate calcifications. LEFT breast is unchanged and unremarkable. ULTRASOUND BREAST RIGHT TECHNIQUE: Ultrasound right breast focused area of concern. CLINICAL INFORMATION: right breast lesion COMPARISON: None. FINDINGS: Ultrasound RIGHT breast area of concern 6 o'clock position. In the area of concern, there is is a tin y amount of skin thickening deep to the skin lesion. No evidence of drainable abscess or fluid collec tion. No other suspicious findings.. IMPRESSION: MM/[place] [id number] BI-RADS: 2-Benign FOLLOW UP: 1 Year Follow-up Recommend return to annual screening mammography.
--- NOTE | 2023-06-25 14:00 | US_ITS ---
WS: [id number] BILATERAL 3D TOMOSYNTHESIS DIGITAL SCREENING MAMMOGRAPHY WITH CAD CLINICAL INFORMATION: right breast lesion HISTORY: Screening mammogram. No current complaints. COMPARISON: 2021 TECHNIQUE: Bilateral CC and MLO views. FINDINGS: Scattered fibroglandular densities bilaterally. Palpable marker RIGHT breast. No underlying parenchym al abnormalities. Ultrasound is pending. A few incidental punctate calcifications. LEFT breast is unchanged and unremarkable. ULTRASOUND BREAST RIGHT TECHNIQUE: Ultrasound right breast focused area of concern. CLINICAL INFORMATION: right breast lesion COMPARISON: None. FINDINGS: Ultrasound RIGHT breast area of concern 6 o'clock position. In the area of concern, there is is a tin y amount of skin thickening deep to the skin lesion. No evidence of drainable abscess or fluid collec tion. No other suspicious findings.. IMPRESSION: US/US breast RT limited* [id number] BI-RADS: 2-Benign FOLLOW UP: 1 Year Follow-up Recommend return to annual screening mammography.
== END 2023-06-25 13:05 | disposition home or self-care (01) ==
LOC: RAD 13:05
PROVIDERS: PCP Family Medicine; Visit Provider Emergency Medicine
DX: N63.25 Unspecified lump in the left breast, overlapping quadrants (principal)
CPT/HCPCS: 76642; 77062; G0279

== ENCOUNTER 2023-10-16 18:18 | Emergency (ER) | payer BC, MEDICAID, SELFPAY ==
[2023-10-16 18:26] VITALS: BP 142/84; PULSE 94; RESP 16; TEMP 36.7; O2SAT 97; BMI 29.2
--- NOTE | 2023-10-16 18:31 | XRR_ITS ---
PROCEDURE INFORMATION: Exam: XR Chest Exam date and time: 10/16/2023 7:11 PM Age: 58 years old Clinical indication: Cough; Additional info: Cough, hemoptysis TECHNIQUE: Imaging protocol: Radiologic exam of the chest. Views: 1 view. COMPARISON: CT chest con [id number] 03/18/2023 2:13 PM FINDINGS: Lungs: Subtle irregular opacities in the right upper lobe laterally and to a lesser extent the left upper lobe laterally. Pleural spaces: Unremarkable. No pleural effusion. No pneumothorax. Heart/Mediastinum: Unremarkable. No cardiomegaly. Bones/joints: Unremarkable. XR/XR chest 1V portable [id number] IMPRESSION: Subtle irregular opacities in the right upper lobe laterally and to a lesser extent the left upper lobe laterally.
--- NOTE | 2023-10-16 18:36 | ED_ITS ---
HPI - URI/Sore Throat 2 General: Chief Complaint: Upper Respiratory Infection Stated Complaint: coughing up blood Time Seen by Provider: 10/16/23 18:33 History of Present Illness: 58-year-old female presents to the emerg ency department with complaints of a cough for the previous 2 days. She states that she is coughed so much that she has noticed specks of blood in her sputum. She states she is recently gotten over both COVID and the influenza. She states she was recently seen by her primary care provider and told that she had COPD/asthma. She states she does not smoke cigarettes daily but had never heard that she had had COPD or asthma before. She denies fevers chills or night sweats. She denies shortness of breath dizziness or lightheaded feeling. She denies nausea or vomiting or chest pain. She states that the last time she had a coughing episode where she coughed up specks of blood she was diagnosed with pneumonia and wanted to get evaluated early. Associated symptoms: Deny chest pain Review of Systems 2 General: Reports: 10 or more systems reviewed and unremarkable except in HPI and below Card: Denies: chest pain, palpitations or irregular heart rhythm Resp: Reports: productive cough and wheezing PFSH ED 2 PFSH: Medical History GERD (gastroesophageal reflux disease) Hyperlipidemia Surgical History Hx of section H/O sinus surgery Family History Father Lung disease COPD Social History Smoking and tobacco/nicotine status: current every day tobacco/nicotine user cigarettes Packs smoked per day: 2 Years cigarettes smoked: 41 [ Other cigarette details: Started at age 16] Quit status (tobacco/nicotine): considering quitting Alcohol intake: never Substance/Drug Use: never Lives independently: Yes Household members: children Marital status: Current occupational status: employed 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 Vital signs as documented. No acute distress at present. Alert and oriented-to person, place, time and situation. Head, eyes, ears, nose, mouth, throat: Normocephalic, atraumatic. Pupils-equal, round, reactive to light. No scleral icterus. Normal-appearing external ears. Normal appearing nasal turbinates, no drainage. No obvious oral lesions, posterior oropharynx without erythema or exudates. Neck: Supple, trachea is midline, no lymphadenopathy, no jugular venous distension, thyromegaly, or carotid bruits. Carotid upstrokes are brisk bilaterally. Lungs: clear to auscultation to all lung ordonez. Symmetrical rise and fall of chest, no obvious signs of increased work of breathing at present. Cardiac: Regular rate and rhythm, positive S1, S2. No murmurs, rubs or gallops that I can appreciate Abdomen: Soft, non-tender to palpation, normal active bowel sounds to all quadrants. No palpable masses, no organomegaly and abdominal bruits. Extremities: 2+ pulses in the upper extremities that are equal bilaterally, 2+ pulses in the lower extremities that are equal bilaterally. Non-edematous. Moves all extremities well, sensation to all extremities are noted. Skin: Warm, dry, intact. Course 2 Vital Signs: Vital signs: Vital Signs Temperature 98.1 F 10/16/23 18:26 Pulse Rate 94 10/16/23 18:26 Respiratory Rate 16 10/16/23 18:26 Blood Pressure 142/84 10/16/23 18:26 Pulse Oximetry 97 10/16/23 18:26 Oxygen Delivery Me thod Room Air 10/16/23 18:26 MDM - URI/Sore Throat Medical Decision Making Physical exam completed and documented I will obtain a CBC and CMP procalcitonin chest x-ray and swab for both influenza and COVID. Medical Records I reviewed the patient's medical records. Lab Data I reviewed the patient's lab results. 10/16/23 19:35 10/16/23 19:35 Radiology Impressions Chest X-Ray 10/16/23 18:31 IMPRESSION: Subtle irregular opacities in the right upper lobe laterally and to a lesser extent the left upper lobe laterally. Laboratory Results WBC 9.93 10^3/uL (3.29-11.43) 10/16/23 19:35 RBC 4.71 10^6/uL (3.85-5.65) 10/16/23 19:35 Hgb 13.60 g/dL (11.27-16.99) 10/16/23 19:35 Hct 41.6 % (36-47) 10/16/23 19: MCV 88.3 fl (85-98) 10/16/23 19: MCH 28.9 pg (27-33) 10/16/23 19: MCHC 32.7 g/dL (30-55) 10/16/23 19:35 RDW 13.7 % (12.1-15.1) 10/16/23: Plt Count 375 10^3/cmm (157-399) 10/16/23 19: MPV 8.5 fL (7.4-10.4) 10/16/23 19:35 Neut % (Auto) 49.2 % 10/16/23 19: Lymph % (Auto) 38.8 % 10/16/23 19:35 [place] % (Auto) 7.0 % 10/16/23 19:35 Eos % (Auto) 3.4 % 10/16/23 19:35 Baso % (Auto) 1.3 % 10/16/23: Neut # (Auto) 4.88 10^3/uL (1.8-7.7) 10/16/23: Lymph # (Auto) 3.9 10^3/uL (0.8-4.8) 10/16/23 19: [place] # (Auto) 0.7 10^3/uL (0.2-0.9) 10/16/23 19:35 Eos # (Auto) 0.3 10^3/uL (0.0-0.8) 10/16/23: Baso # (Auto) 0.1 10^3/uL (0.0-0.1) 10/16/23 19: Nucleated RBC % (auto) 0 % 10/16/23: Nucleated RBCs # 0.0 /100WBC 10/16/23: Sodium 140 mmol/L (136-145) 10/16/23 19: Potassium 4.0 mmol/L (3.5-5.1) 10/16/23 19:35 Chloride 105 mmol/L (98-107) 10/16/23 19:35 Carbon Dioxide 27 mmol/L (22-29) 10/16/23 19:35 Anion Gap 12.0 (5-19) 10/16/23 19:35 BUN 6 mg/dL (6-20) 10/16/23 19:35 Creatinine 0.6 mg/dL (0.5-0.9) 10/16/23 19:35 GFR Calculation 102.7 mL/min (90-130) 10/16/23 19:35 Glucose 94 mg/dL (65-115) 10/16/23 19:35 Calculated Osmolality 287 mOsm/kg (285-295) 10/16/23 19:35 Calcium 9.3 mg/dL (8.5-10.5) 10/16/23 19:35 Total Bilirubin 0.2 mg/dL (0.15-1.2) 10/16/23 19:35 AST 17 U/L (0-32) 10/16/23 19:35 ALT 18 U/L (0-33) 10/16/23 19:35 Alkaline Phosphatase 93 U/L (35-105) 10/16/23 19:35 Total Protein 7.1 g/dL (6.6-8.7) 10/16/23 19:35 Albumin 4.2 g/dL (3.5-5.2) 10/16/23 19:35 Globulin 2.9 g/dL (1.3-4.6) 10/16/23 19:35 Influenza Type A Ag negative (Negative) 10/16/23 18:37 Influenza Type B Ag negative (Negative) 10/16/23 18:37 SARS-CoV-2 Ag (Rapid) negative (Negative) 10/16/23 18:37 All radiology interpretation(s) finalized by discharge Discharge Plan Discharge Patient Disposition: Home Clinical Impression: PNA (pneumonia), COPD (chronic obstructive pulmonary disease), Cough Condition: Stable Prescriptions: New azithromycin [Zithromax Z-Ryan] 250 mg tablet See Rx Instructions PO .COMPLEX Qty: 6 0RF Rx Instructions: For 250 mg dose pack: take 500 mg today (day 1), then 250 mg for 4 days (days 2-5) benzonatate 200 mg capsule 200 mg PO TID Qty: 30 0RF guaifenesin 1,200 mg tablet extended release 12hr 1,200 mg PO BID Qty: 14 0RF prednisone 20 mg tablet 40 mg PO DAILY 5 Days Qty: 10 0RF No Action Multiple Vitamin, Womens Tablet 1 tab PO DAILY loratadine [Allergy Relief (loratadine)] 10 mg tablet 10 mg PO DAILY ascorbate calcium (vitamin C) 500 mg tablet 500 mg PO DAILY mecobalamin (vitamin B12) 1,000 mcg lozenge 1,000 mcg PO DAILY Rx Instructions: allow to dissolve in mouth OR may chew lightly before swallowing budesonide-formoterol [Symbicort] 80-4.5 mcg/actuation HFA aerosol inhaler 1 inh inhalation BID Qty: 10.2 3RF cholecalciferol (vitamin D3) 10 mcg (400 unit) capsule 10 mcg PO DAILY albuterol sulfate 90 mcg/actuation HFA aerosol inhaler 2 inh inhalation QID PRN (Reason: shortness of breath or wheezing) Qty: 8.5 2RF prednisone 20 mg tablet See Rx Instructions .Route .COMPLEX Qty: 14 0RF Rx Instructions: 2 tabs PO daily for 4 days, then 1 tab PO daily X 4 days, then 0.5 tab daily for 4 days, then stop; levofloxacin 750 mg tablet 750 mg PO DAILY Qty: 7 0RF fluticasone propionate [Children's Flonase Allergy Rlf] 50 mcg/actuation spray,suspension 1 spray intranasal BID PRN (Reason: allergy symptoms) Qty: 16 11RF Rx Instructions: administer into each nostril omeprazole 20 mg tablet,delayed release (DR/EC) 20 mg PO DAILY Qty: 30 11RF Discharge Orders: Discharge ED (Routine); Ordered 10/16/23 Ordered By: Terrance Lou Referrals: Yakov Edwards MD [Primary Care Provider] - Discharge Diet: Low Salt Discharge Activity: Resume usual activity Patient Instructions: Opioid Safety, Pain Management Activity Restrictions/Additional Instructions: Activity Restrictions/Additional Instructions: Thank you for choosing [facility] for your healthcare needs today. Please realize that you were seen in the Emergency Department and that we are providing you with an emergency medical screening exam and this may not be a complete and all inclusive of all the testing and or medical work-up that you may need to determine your ailment or severity of your illness. It is very important that you follow-up as instructed with your Primary care provider or Specialist for additional evaluation and to discuss your medical treatment plan. You may return to the Emergency Department should you have concerns or if your condition changes or worsens in any way. Coding Level of Care Code ED Development Assistant for Cristal Love
[2023-10-16 19:34] LABS: Influenza A by IFA negative (Negative); Influenza B by IFA negative (Negative)
[2023-10-16 19:35] LABS: SARS Covid-2 Antigen negative (Negative)
[2023-10-16 19:42] LABS: Basophils # 0.1 10^3/uL (0.0-0.1); Basophils % 1.3 %; Eosinophils # 0.3 10^3/uL (0.0-0.8); Eosinophils % 3.4 %; Hematocrit 41.6 % (36-47); Lymphocytes # 3.9 10^3/uL (0.8-4.8); Lymphocytes % 38.8 %; Mean Corpuscular HGB Conc 32.7 g/dL (30-55); Mean Corpuscular Hemoglobin 28.9 pg (27-33); Mean Corpuscular Volume 88.3 fl (85-98); Mean Platelet Volume 8.5 fL (7.4-10.4); Monocytes # 0.7 10^3/uL (0.2-0.9); Neutrophils # 4.88 10^3/uL (1.8-7.7); Neutrophils % 49.2 %; Nucleated Red Blood Cells % 0 %; Platelet Count 375 10^3/cmm (157-399); Red Blood Count 4.71 10^6/uL (3.85-5.65); Red Cell Distribution Width 13.7 % (12.1-15.1); White Blood Count 9.93 10^3/uL (3.29-11.43)
[2023-10-16 20:02] LABS: Alanine Aminotransferase 18 U/L (0-33); Albumin Level 4.2 g/dL (3.5-5.2); Alkaline Phosphatase 93 U/L (35-105); Aspartate Amino Transferase 17 U/L (0-32); Blood Urea Nitrogen 6 mg/dL (6-20); Calcium 9.3 mg/dL (8.5-10.5); Carbon Dioxide 27 mmol/L (22-29); Chloride 105 mmol/L (98-107); Globulin 2.9 g/dL (1.3-4.6); Glomerular Filtration Rate 102.7 mL/min (90-130); Glucose 94 mg/dL (65-115); Osmolality Calculated 287 mOsm/kg (285-295); Sodium 140 mmol/L (136-145); Total Bilirubin 0.2 mg/dL (0.15-1.2); Total Protein 7.1 g/dL (6.6-8.7)
[2023-10-16 20:08] LABS: Procalcitonin 0.04 ng/mL (0-0.5)
== END 2023-10-16 20:29 | disposition home or self-care (01) ==
PROVIDERS: Emergency Provider Internal Medicine; PCP Family Medicine
DX: J44.0 Chronic obstructive pulmonary disease with (acute) lower respiratory infection (principal); J18.9 Pneumonia, unspecified organism; Z11.52 Encounter for screening for COVID-19; E78.5 Hyperlipidemia, unspecified; F17.210 Nicotine dependence, cigarettes, uncomplicated
CPT/HCPCS: 36415; 71045; 80053; 84145; 85025; 87426; 87804; 99284

== ENCOUNTER 2023-10-19 17:23 | Emergency (ER) | payer BC, MEDICAID, SELFPAY ==
[2023-10-19 17:32] VITALS: BP 146/79; PULSE 103; RESP 18; TEMP 36.7; O2SAT 95
[2023-10-19 17:35] VITALS: RESP 17; O2SAT 93
[2023-10-19 18:05] VITALS: RESP 18; O2SAT 97
[2023-10-19 18:28] LABS: Basophils % 0.3 %; Eosinophils % 0.1 %; Hematocrit 39.5 % (36-47); Lymphocytes # 2.5 10^3/uL (0.8-4.8); Lymphocytes % 17.6 %; Mean Corpuscular HGB Conc 33.4 g/dL (30-55); Mean Corpuscular Hemoglobin 29.5 pg (27-33); Mean Corpuscular Volume 88.2 fl (85-98); Mean Platelet Volume 8.7 fL (7.4-10.4); Monocytes # 0.8 10^3/uL (0.2-0.9); Neutrophils % 75.4 %; Nucleated Red Blood Cells % 0 %; Platelet Count 437 10^3/cmm (157-399); Red Blood Count 4.48 10^6/uL (3.85-5.65); Red Cell Distribution Width 13.6 % (12.1-15.1); White Blood Count 14.05 10^3/uL (3.29-11.43)
--- NOTE | 2023-10-19 18:35 | ED_ITS ---
HPI - General Adult 2 General: Chief complaint: General Medical Stated complaint: cough up blood Time Seen by Provider: 10/19/23 17:45 History of Present Illness: Patient presents to the ER with complaints of coughing up blood. Patient was seen approximately 3 days ago in this ER for similar episode got diagnosed with pneumonia and COPD. Patient was sent home with azithromycin, Tessalon Perles, guaifenesin, and prednisone. Patient had those feels the next day and has been taking them for the last 2 days. The first day patient says she coughed up quite a bit of blood but then it resolved the next day and started back after she got to a coughing fit today. Patient said is more than just flex mixed in with mucus but it was not enough to saturate paper towels. Patient has had this before several times when she had pneumonia. Patient is not on any type of anticoagulants. Patient does not have any bleeding disorders that she is aware of. Patient is not hypotensive but is mildly tachycardic with a heart rate of 103 upon arrival. Review of Systems 2 General: Reports: 10 or more systems reviewed and unremarkable except in HPI and below PFSH ED 2 PFSH: Medical History GERD (gastroesophageal reflux disease) Hyperlipidemia Surgical History Hx of section H/O sinus surgery Family History Father Lung disease COPD Social History Smoking and tobacco/nicotine status: current every day tobacco/nicotine user cigarettes Packs smoked per day: 2 Years cigarettes smoked: 41 [ Other cigarette details: Started at age 16] Quit status (tobacco/nicotine): considering quitting Alcohol intake: never Substance/Drug Use: never Lives independently: Yes Household members: children Marital status: Current occupational status: employed 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 [employer] Current occupational exposures/hazards: 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) Do you think of yourself as: Straight/Heterosexual Current gender identity: Female Physical Exam 2 Const: COMMON NORMALS: no acute distress, average body habitus, patient oriented x3, no limitations, healthy appearing, alert and well nourished HENMT: COMMON NORMALS: normocephalic, atraumatic, hearing grossly normal bilaterally, external ears normal, Normal external nose present, moist oral mucous membranes and oropharynx normal HEAD & SCALP: normocephalic and atraumatic NOSE: Normal external nose present EXTERNAL EAR: Yes external ears normal Neck/C-Spine: COMMON NORMALS: no JVD Chest: COMMONS NORMALS: normal inspection of the chest and normal palpation of entire chest wall Resp: COMMON NORMALS: normal respiratory effort, No retractions, No use of accessory muscles and clear to auscultation bilaterally AUSCULTATION: clear to auscultation bilaterally Cardio: COMMON NORMALS: no JVD, regular rate, regular rhythm, S1 normal heart sound present, S2 normal heart sound present, No gallops present (Cardio), No clicks present (Cardio), No murmurs present (Cardio) and No rub (Cardio) R ATE: regular rate RHYTHM: regular rhythm HEART SOUNDS: S1 normal heart sound present and S2 normal heart sound present GI: COMMON NORMALS: Normal to inspection, nondistended, normoactive bowel sounds present, Soft to palpation, non-tender, No hepatosplenomegaly present and no masses PALPATION: Yes Soft to palpation and Yes No hepatosplenomegaly present Neuro: COMMON NORMALS: patient oriented x3 SENSORIUM/ORIENTATION: Yes alert Course 2 Vital Signs: Vital signs: Vital Signs Temperature 98.0 F 10/19/23 17:32 Pulse Rate 103 H 10/19/23 17:32 Respiratory Rate 18 10/19/23 18:05 Blood Pressure 146/79 10/19/23 17:32 Pulse Oximetry 97 10/19/23 18:05 Oxygen Delivery Me thod Room Air 10/19/23 18:05 MDM - General Adult Medical Decision Making I personally reviewed the note from 10/16/2023 and the lab work and x-ray. Awaiting for the blood work to come back patient had a coughing fit and is coughed up some blood and spitting some paper towels and was a minimal amount less than a teaspoon. And then she was just fine after that. Lab work was obtained and is essentially unchanged from previous lab work PT/INR was normal white count is slightly elevated but this is probably due to the patient steroids. These results was discussed with the patient and as she should take the Tessalon Perles routinely for the next 48 hours and see if this cuts down her coughing which helps her coughing up blood. Patient was instructed that if the coughing up blood increases please come back to the ER and she understood. Differential Diagnosis Pneumonia, hemoptysis, broken blood vessels during coughing, Medical Records I reviewed the patient's medical records. Lab Data I reviewed the patient's lab results. 10/19/23 18:10 10/19/23 18:10 Laboratory Results WBC 14.05 10^3/uL (3.29-11.43) H 10/19/23 18:10 RBC 4.48 10^6/uL (3.85-5.65) 10/19/23 18:10 Hgb 13.20 g/dL (11.27-16.99) 10/19/23 18:10 Hct 39.5 % (36-47) 10/19/23 18:10 MCV 88.2 fl (85-98) 10/19/23 18:10 MCH 29.5 pg (27-33) 10/19/23 18:10 MCHC 33.4 g/dL (30-55) 10/19/23 18:10 RDW 13.6 % (12.1-15.1) 10/19/23 18:10 Plt Count 437 10^3/cmm (157-399) H 10/19/23 18:10 MPV 8.7 fL (7.4-10.4) 10/19/23 18:10 Neut % (Auto) 75.4 % 10/19/23 18:10 Lymph % (Auto) 17.6 % 10/19/23 18:10 [place] % (Auto) 6.0 % 10/19/23 18:10 Eos % (Auto) 0.1 % 10/19/23 18:10 Baso % (Auto) 0.3 % 10/19/23 18:10 Neut # (Auto) 10.60 10^3/uL (1.8-7.7) H 10/19/23 18:10 Lymph # (Auto) 2.5 10^3/uL (0.8-4.8) 10/19/23 18:10 [place] # (Auto) 0.8 10^3/uL (0.2-0.9) 10/19/23 18:10 Eos # (Auto) 0.0 10^3/uL (0.0-0.8) 10/19/23 18:10 Baso # (Auto) 0.0 10^3/uL (0.0-0.1) 10/19/23 18:10 Nucleated RBC % (auto) 0 % 10/19/23 18:10 Nucleated RBCs # 0.0 /100WBC 10/19/23 18:10 PT 12.50 SECONDS (12.1-14.9) 10/19/23 18:10 INR 0.91 (0.8-1.2) 10/19/23 18:10 Sodium 133 mmol/L (136-145) L 10/19/23 18:10 Potassium 3.9 mmol/L (3.5-5.1) 10/19/23 18:10 Chloride 101 mmol/L (98-107) 10/19/23 18:10 Carbon Dioxide 22 mmol/L (22-29) 10/19/23 18:10 Anion Gap 13.9 (5-19) 10/19/23 18:10 BUN 13 mg/dL (6-20) 10/19/23 18:10 Creatinine 0.9 mg/dL (0.5-0.9) 10/19/23 18:10 GFR Calculation 64.3 mL/min (90-130) L 10/19/23 18:10 Glucose 169 mg/dL (65-115) H 10/19/23 18:10 Calculated Osmolality 280 mOsm/kg (285-295) L 10/19/23 18:10 Calcium 9.5 mg/dL (8.5-10.5) 10/19/23 18:10 Total Bilirubin 0.2 mg/dL (0.15-1.2) 10/19/23 18:10 AST 16 U/L (0-32) 10/19/23 18:10 ALT 20 U/L (0-33) 10/19/23 18:10 Alkaline Phosphatase 94 U/L (35-105) 10/19/23 18:10 Total Protein 6.9 g/dL (6.6-8.7) 10/19/23 18:10 Albumin 4.2 g/dL (3.5-5.2) 10/19/23 18:10 Globulin 2.7 g/dL (1.3-4.6) 10/19/23 18:10 No radiology studies performed this visit Discharge Plan Discharge Patient Disposition: Home Clinical Impression: Hemoptysis Condition: Stable Prescriptions: No Action Multiple Vitamin, Womens Tablet 1 tab PO DAILY loratadine [Allergy Relief (loratadine)] 10 mg tablet 10 mg PO DAILY ascorbate calcium (vitamin C) 500 mg tablet 500 mg PO DAILY mecobalamin (vitamin B12) 1,000 mcg lozenge 1,000 mcg PO DAILY Rx Instructions: allow to dissolve in mouth OR may chew lightly before swallowing budesonide-formoterol [Symbicort] 80-4.5 mcg/actuation HFA aerosol inhaler 1 inh inhalation BID Qty: 10.2 3RF cholecalciferol (vitamin D3) 10 mcg (400 unit) capsule 10 mcg PO DAILY albuterol sulfate 90 mcg/actuation HFA aerosol inhaler 2 inh inhalation QID PRN (Reason: shortness of breath or wheezing) Qty: 8.5 2RF prednisone 20 mg tablet See Rx Instructions .Route .COMPLEX Qty: 14 0RF Rx Instructions: 2 tabs PO daily for 4 days, then 1 tab PO daily X 4 days, then 0.5 tab daily for 4 days, then stop; levofloxacin 750 mg tablet 750 mg PO DAILY Qty: 7 0RF fluticasone propionate [Children's Flonase Allergy Rlf] 50 mcg/actuation spray,suspension 1 spray intranasal BID PRN (Reason: allergy symptoms) Qty: 16 11RF Rx Instructions: administer into each nostril omeprazole 20 mg tablet,delayed release (DR/EC) 20 mg PO DAILY Qty: 30 11RF guaifenesin 1,200 mg tablet extended release 12hr 1,200 mg PO BID Qty: 14 0RF Zithromax Z-Ryan 250 mg tablet See Rx Instructions PO .COMPLEX Qty: 6 0RF Rx Instructions: For 250 mg dose pack: take 500 mg today (day 1), then 250 mg for 4 days (days 2-5) benzonatate 200 mg capsule 200 mg PO TID Qty: 30 0RF prednisone 20 mg tablet 40 mg PO DAILY 5 Days Qty: 10 0RF Discharge Orders: Discharge ED (Routine); Ordered 10/19/23 Ordered By: Raffaele Medina Referrals: Spurling,Yakov K, MD [Primary Care Provider] - 1 week Patient Instructions: Coughing Up Blood (Hemoptysis) (ED) Activity Restrictions/Additional Instructions: Your lab work in the ER is within normal limits and unchanged. You are coughing up blood is probably from broken blood vessels in your upper airways due to coughing so hard. Please take the Tessalon Perles [id number] for at least the next 48 hours to help with this. If the amount of blood you cough up drastically increases please feel free to return to the ER for further workup otherwise follow-up with your family practice physician within the next 7 days. Coding Level of Care Code ED Grief Counsellor for Cristal Love
[2023-10-19 18:47] LABS: INR 0.91 (0.8-1.2)
[2023-10-19 18:52] LABS: Alanine Aminotransferase 20 U/L (0-33); Albumin Level 4.2 g/dL (3.5-5.2); Alkaline Phosphatase 94 U/L (35-105); Anion Gap 13.9 (5-19); Aspartate Amino Transferase 16 U/L (0-32); Blood Urea Nitrogen 13 mg/dL (6-20); Calcium 9.5 mg/dL (8.5-10.5); Carbon Dioxide 22 mmol/L (22-29); Chloride 101 mmol/L (98-107); Globulin 2.7 g/dL (1.3-4.6); Glomerular Filtration Rate 64.3 mL/min (90-130); Glucose 169 mg/dL (65-115); Osmolality Calculated 280 mOsm/kg (285-295); Potassium 3.9 mmol/L (3.5-5.1); Sodium 133 mmol/L (136-145); Total Bilirubin 0.2 mg/dL (0.15-1.2); Total Protein 6.9 g/dL (6.6-8.7)
== END 2023-10-19 19:58 | disposition home or self-care (01) ==
PROVIDERS: Emergency Provider Emergency Medicine; PCP Family Medicine
DX: R04.2 Hemoptysis (principal); E78.5 Hyperlipidemia, unspecified; F17.210 Nicotine dependence, cigarettes, uncomplicated
CPT/HCPCS: 80053; 85025; 85610; 99283

== ENCOUNTER 2023-10-23 11:32 | Outpatient (CLI) | payer BC, MEDICAID, SELFPAY ==
--- NOTE | 2023-10-23 12:00 | CT_ITS ---
WS: [id number] CT chest wo con [id number] HISTORY: hemoptysis TECHNIQUE: Axial imaging performed through the thorax. Coronal and sagittal reformats are submitted. All CT scans at [facility] use at least one of these dose optimization techniques: automated exposure control; mA and/or kV adjustment per patient size (includes targeted exams where dose is mat ched to clinical indication); or iterative reconstruction. CONTRAST: None DLP: 373.48 mGy.cm COMPARISON: 03/18/2023, 12/16/2022 and 05/29/2020 Lungs and central airway: Severe emphysema. There is a new ill-defined area of groundglass attenuatio n in the anteroinferior RIGHT upper lobe. This is superimposed on the additional areas of spiculated opacifications and interstitial thickening that have been previously described. There is no new mass. No endobronchial lesions. Pleura: Normal. No pleural effusion. Heart and pericardium: Normal size heart with no pericardial effusion. Mediastinum and violette: No mediastinum or hilar adenopathy. Vessels: Mild atherosclerosis aorta. Chest wall and lower neck: No soft tissue masses. Upper abdomen: Hepatic steatosis. Osseous structures: No destructive process. IMPRESSION: 1. New groundglass opacification involving the anterior inferior RIGHT upper lobe. With history of h emoptysis this is suspicious for pulmonary hemorrhage and may be underlying viral pneumonia. 2. Severe emphysema. 3. The interstitial thickening in the areas of spiculation which have been previously described do n ot appear to significantly have progressed. These are undergoing surveillance. Notified Yakov Edwards MD at 10/23/2023 12:06 PM.
== END 2023-10-23 11:33 | disposition home or self-care (01) ==
LOC: RAD 11:32
PROVIDERS: PCP Family Medicine; Visit Provider Family Medicine
DX: R04.2 Hemoptysis (principal); J43.9 Emphysema, unspecified
CPT/HCPCS: 71250

== ENCOUNTER 2023-12-21 02:24 | Emergency (ER) | payer BC, MEDICAID, SELFPAY ==
[2023-12-21 02:27] VITALS: BP 155/94; PULSE 84; RESP 15; TEMP 36.4; O2SAT 100; BMI 30.2
--- NOTE | 2023-12-21 02:28 | XRR_ITS ---
PROCEDURE INFORMATION: Exam: XR Chest Exam date and time: 12/21/2023 2:28 AM Age: 58 years old Clinical indication: Left-sided; Patient HX: C/O left sided chest pain. History of copd and emphysema. ; Additional info: Cp TECHNIQUE: Imaging protocol: Radiologic exam of the chest. Views: 1 view. COMPARISON: CT chest con [id number] 10/23/2023 11:38 AM FINDINGS: Lungs: No consolidation. Pleural spaces: Unremarkable. No pleural effusion. No pneumothorax. Heart/Mediastinum: No cardiomegaly. Bones/joints: No acute fracture. XR/XR chest 1V portable [id number] IMPRESSION: No acute findings.
--- NOTE | 2023-12-21 02:29 | ECG_ITS ---
[facility] Test Date: 2023-12-21 Pat Name: Valerie Traylor Department: Room: Gender: Female Compensation Programs Manager: : 1965 Requested By: Fabien Turcios Order Number: [id number] Sahara MD: Yonathan Tovar M.D. Measurements Intervals [place] Rate: 84 P: 52 TN: 139 QRS: 67 QRSD: 80 T: 55 QT: 346 QTc: 411 Interpretive Statements SINUS RHYTHM Compared to ECG 08/15/2014 00:43:53 No significant changes Electronically Signed On 12-21-2023 22:43:08 CDT by Yonathan Tovar M.D. [id number]
--- NOTE | 2023-12-21 02:35 | W.ED.CHESTPA ---
HPI - Chest Pain General: Chief Complaint: Chest Pain Stated Complaint: chest pressure heart was beating fast Time Seen by Provider: 12/21/23 02:28 History of Present Illness: 58-year-old female with no prior history of coronary disease. She does have a history of asthma and COPD. She presents with chest discomfort that awoke her around 1 AM. She says that she has had the flu all week. She has vomited a few times, and had significant diarrhea. She complains that the pain was in the left side of her chest. She was nauseated and short of breath with it. She denies significant cough. She denies sputum production. She denies fever. Associated symptoms: Reports abdominal pain, dyspnea, nausea, palpitations and vomiting; Deny fever(s) Review of Systems Const: Denies: fever(s) ENMT: Denies: throat pain Card: Reports: chest pain and palpitations Resp: Reports: dyspnea; Denies: productive cough or non-productive cough GI: Reports: abdominal pain, nausea, vomiting and diarrhea; Denies: hematochezia PFSH ED PFSH: Medical History Nicotine dependence, cigarettes, uncomplicated GERD (gastroesophageal reflux disease) Hyperlipidemia Surgical History Hx of section H/O sinus surgery Family History Father Lung disease COPD Social History Smoking and tobacco/nicotine status: current every day tobacco/nicotine user cigarettes Packs smoked per day: 2 Years cigarettes smoked: 41 [ Other cigarette details: Started at age 16] Quit status (tobacco/nicotine): considering quitting Alcohol intake: never Substance/Drug Use: never Lives independently: Yes Household members: children Marital status: Current occupational status: employed 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: 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) Do you think of yourself as: Straight/Heterosexual Current gender identity: Female Physical Exam Const: COMMON NORMALS: no acute distress GENERAL APPEARANCE: cooperative and anxious; not ill appearing and not frail appearing HENMT: COMMON NORMALS: normocephalic, atraumatic and Normal external nose present HEAD & SCALP: normocephalic and atraumatic FACE & SINUS: normal facial exam and face symmetric NOSE: Normal external nose present Eye: COMMON NORMALS: Equal, round and reactive pupils present and EOMs intact bilaterally PUPIL: Yes Equal, round and reactive pupils present Neck/C-Spine: GENERAL: Yes trachea midline Chest: CHEST: Yes Symmetrical chest wall rise Resp: COMMON NORMALS: normal respiratory effort, No retractions, No use of accessory muscles and clear to auscultation bilaterally AUSCULTATION: clear to auscultation bilaterally Cardio: COMMON NORMALS: regular rate and regular rhythm RATE: regular rate RHYTHM: regular rhythm GI: COMMON NORMALS: Soft to palpation PALPATION: Yes Soft to palpation, Yes Tenderness to palpation present (GI) (Epigastric) and No Guarding due to palpation present (GI) Extremity: COMMON NORMALS: no pedal edema Neuro: [place] COMA SCALE: document GCS findings [place] coma scale eye opening: Spontaneous [place] coma scale verbal response: Orientated [place] coma scale motor response: Obey commands [place] coma scale total score: 15 SENSORY EXAM: Yes extremities (intact) Psych: COMMON NORMALS: speech normal SPEECH: Yes normal speech Skin: COMMON NORMALS: no rashes or lesions noted GENERAL SKIN EXAM: no rashes or lesions noted Course Vital Signs: Vital signs: Vital Signs Temperature 97.5 F L 12/21/23 02:27 Pulse Rate 84 12/21/23 02:27 Respiratory Rate 15 12/21/23 02:27 Blood Pressure 155/94 12/21/23 02:27 Pulse Oximetry 100 12/21/23 02:27 MDM - Chest Pain Medical Decision Making 58-year-old female with chest discomfort. Chest discomfort is now gone. She is much more comfortable. CBC is not remarkable. BMP is not remarkable. Chest x-ray is not remarkable. Lipase is 24. Troponin is nondetectable as is BNP. EKG shows a sinus rhythm with a rate of 85, normal axis, intervals are normal, no acute ST wave changes. She will be allowed discharge home. Lab Data 12/21/23 02:41 12/21/23 02:41 Radiology Impressions Chest X-Ray 12/21/23 02:28 IMPRESSION: No acute findings. Laboratory Results WBC 9.92 10^3/uL (3.29-11.43) 12/21/23 02:41 RBC 5.06 10^6/uL (3.85-5.65) 12/21/23 02:41 Hgb 14.70 g/dL (11.27-16.99) 12/21/23 02:41 Hct 45.0 % (36-47) 12/21/23 02:41 MCV 88.9 fl (85-98) 12/21/23 02:41 MCH 29.1 pg (27-33) 12/21/23 02:41 MCHC 32.7 g/dL (30-55) 12/21/23 02:41 RDW 13.2 % (12.1-15.1) 12/21/23 02:41 Plt Count 413 10^3/cmm (157-399) H 12/21/23 02:41 MPV 8.7 fL (7.4-10.4) 12/21/23 02:41 Neut % (Auto) 55.7 % 12/21/23 02:41 Lymph % (Auto) 30.1 % 12/21/23 02:41 [place] % (Auto) 9.8 % 12/21/23 02:41 Eos % (Auto) 3.0 % 12/21/23 02:41 Baso % (Auto) 0.9 % 12/21/23 02:41 Neut # (Auto) 5.52 10^3/uL (1.8-7.7) 12/21/23 02:41 Lymph # (Auto) 3.0 10^3/uL (0.8-4.8) 12/21/23 02:41 [place] # (Auto) 1.0 10^3/uL (0.2-0.9) H 12/21/23 02:41 Eos # (Auto) 0.3 10^3/uL (0.0-0.8) 12/21/23 02:41 Baso # (Auto) 0.1 10^3/uL (0.0-0.1) 12/21/23 02:41 Nucleated RBC % (auto) 0 % 12/21/23 02:41 Nucleated RBCs # 0.0 /100WBC 12/21/23 02:41 Sodium 140 mmol/L (136-145) 12/21/23 02:41 Potassium 3.4 mmol/L (3.5-5.1) L 12/21/23 02:41 Chloride 102 mmol/L (98-107) 12/21/23 02:41 Carbon Dioxide 25 mmol/L (22-29) 12/21/23 02:41 Anion Gap 16.4 (5-19) 12/21/23 02:41 BUN 7 mg/dL (6-20) 12/21/23 02:41 Creatinine 0.9 mg/dL (0.5-0.9) 12/21/23 02:41 GFR Calculation 64.3 mL/min (90-130) L 12/21/23 02:41 Glucose 127 mg/dL (65-115) H 12/21/23 02:41 Calculated Osmolality 290 mOsm/kg (285-295) 12/21/23 02:41 Calcium 9.2 mg/dL (8.5-10.5) 12/21/23 02:41 Total Bilirubin 0.3 mg/dL (0.15-1.2) 12/21/23 02:41 AST 32 U/L (0-32) 12/21/23 02:41 ALT 41 U/L (0-33) H 12/21/23 02:41 Alkaline Phosphatase 89 U/L (35-105) 12/21/23 02:41 Troponin T Baseline < 6 ng/L (0-10) 12/21/23 02:41 NT-Pro-B Natriuret Pep < 36 pg/mL (0-125) 12/21/23 02:41 Total Protein 6.9 g/dL (6.6-8.7) 12/21/23 02:41 Albumin 4.3 g/dL (3.5-5.2) 12/21/23 02:41 Globulin 2.6 g/dL (1.3-4.6) 12/21/23 02:41 Lipase 24 U/L (13-60) 12/21/23 02:41 All radiology interpretation(s) finalized by discharge Discharge Plan Discharge Patient Disposition: Home Clinical Impression: Chest pain Condition: Stable Prescriptions: No Action Multiple Vitamin, Womens Tablet 1 tab PO DAILY ondansetron 4 mg tablet,disintegrating 4 mg PO Q8H PRN (Reason: nausea and vomiting) Qty: 15 0RF loratadine [Allergy Relief (loratadine)] 10 mg tablet 10 mg PO DAILY ascorbate calcium (vitamin C) 500 mg tablet 500 mg PO DAILY mecobalamin (vitamin B12) 1,000 mcg lozenge 1,000 mcg PO DAILY Rx Instructions: allow to dissolve in mouth OR may chew lightly before swallowing cholecalciferol (vitamin D3) 10 mcg (400 unit) capsule 10 mcg PO DAILY budesonide-formoterol [Symbicort] 80-4.5 mcg/actuation HFA aerosol inhaler 1 inh inhalation BID Qty: 10.2 6RF fluticasone propionate [Children's Flonase Allergy Rlf] 50 mcg/actuation spray,suspension 1 spray intranasal BID PRN (Reason: allergy symptoms) Qty: 16 11RF Rx Instructions: administer into each nostril albuterol sulfate 90 mcg/actuation HFA aerosol inhaler 2 inh inhalation QID PRN (Reason: shortness of breath or wheezing) Qty: 8.5 2RF bupropion HCl [Wellbutrin XL] 150 mg tablet extended release 24 hr 150 mg PO QAM Qty: 30 11RF omeprazole 20 mg tablet,delayed release (DR/EC) 20 mg PO DAILY Qty: 30 11RF nystatin 100,000 unit/mL suspension 10 ml PO DAILY Qty: 473 0RF Rx Instructions: administer 1/2 of dose in each side of the mouth guaifenesin 1,200 mg tablet extended release 12hr 1,200 mg PO BID Qty: 14 0RF Discharge Orders: Discharge ED (Routine); Ordered 12/21/23 Ordered By: Fabien Charles Referrals: Yakov Edwards MD [Primary Care Provider] - 1-3 days Patient Instructions: Chest Pain (ED), Opioid Safety, Pain Management Activity Restrictions/Additional Instructions: Return for any return of chest discomfort, shortness of breath, vomiting, other concerning symptoms. See your doctor this week. Coding Level of Care Code ED Film Touch Up Inspector for Cristal Love
[2023-12-21 02:46] LABS: Basophils # 0.1 10^3/uL (0.0-0.1); Basophils % 0.9 %; Eosinophils # 0.3 10^3/uL (0.0-0.8); Lymphocytes % 30.1 %; Mean Corpuscular HGB Conc 32.7 g/dL (30-55); Mean Corpuscular Hemoglobin 29.1 pg (27-33); Mean Corpuscular Volume 88.9 fl (85-98); Mean Platelet Volume 8.7 fL (7.4-10.4); Monocytes % 9.8 %; Neutrophils # 5.52 10^3/uL (1.8-7.7); Neutrophils % 55.7 %; Nucleated Red Blood Cells % 0 %; Platelet Count 413 10^3/cmm (157-399); Red Blood Count 5.06 10^6/uL (3.85-5.65); Red Cell Distribution Width 13.2 % (12.1-15.1); White Blood Count 9.92 10^3/uL (3.29-11.43)
[2023-12-21 03:03] LABS: Troponin(5th) Baseline < 6 ng/L (0-10)
[2023-12-21] MEDS: morphine 4 mg/mL SDV 1 mL IVP (03:03)
[2023-12-21] MEDS: lidocaine 2% viscous 15 ML, aluminum-mag hydrox-simethicon 30 ML, sucralfate oral liq 1 GM PO (03:03)
[2023-12-21] MEDS: sodium chloride 0.9% 1,000 ML 999 ML IV (03:03)
[2023-12-21] MEDS: ondansetron 2 mg/ML SDV 2 mL 4 MG IVP (03:03)
[2023-12-21 03:18] LABS: Alanine Aminotransferase 41 U/L (0-33); Albumin Level 4.3 g/dL (3.5-5.2); Alkaline Phosphatase 89 U/L (35-105); Anion Gap 16.4 (5-19); Aspartate Amino Transferase 32 U/L (0-32); Blood Urea Nitrogen 7 mg/dL (6-20); Calcium 9.2 mg/dL (8.5-10.5); Carbon Dioxide 25 mmol/L (22-29); Chloride 102 mmol/L (98-107); Creatinine Clr Calc Pharmacy 62.0739; Globulin 2.6 g/dL (1.3-4.6); Glomerular Filtration Rate 64.3 mL/min (90-130); Glucose 127 mg/dL (65-115); Lipase 24 U/L (13-60); NT Pro B Type Natriuretic Pept < 36 pg/mL (0-125); Osmolality Calculated 290 mOsm/kg (285-295); Potassium 3.4 mmol/L (3.5-5.1); Sodium 140 mmol/L (136-145); Total Bilirubin 0.3 mg/dL (0.15-1.2); Total Protein 6.9 g/dL (6.6-8.7)
== END 2023-12-21 04:09 | disposition home or self-care (01) ==
PROVIDERS: Emergency Provider Emergency Medicine; PCP Family Medicine
DX: R07.9 Chest pain, unspecified (principal); E78.5 Hyperlipidemia, unspecified; F17.210 Nicotine dependence, cigarettes, uncomplicated
CPT/HCPCS: 71045; 80053; 83690; 83880; 84484; 85025; 93005; 96361; 96374; 96375; 99285; J2270; J2405; J7030

== ENCOUNTER 2024-01-16 20:08 | Emergency (ER) | payer BC, MEDICAID, SELFPAY ==
[2024-01-16 20:10] VITALS: BP 163/78; PULSE 94; RESP 15; TEMP 36.6; O2SAT 95
--- NOTE | 2024-01-16 21:34 | ED_ITS ---
HPI - Skin/Abscess/Foreign Bdy General: Chief complaint: Skin/Abscess/Foreign Body Stated complaint: Right hand injury Time Seen by Provider: 01/16/24 21:19 History of Present Illness: Patient has a small red area on her left hand has been there for a few days now. She is developed a black area that she tried to squeeze it and got a small amount of blood out of. She does have a small black blister on that portion of her hand. She is taking 150 mg of clindamycin 3 times a day for a dental infection for the last day. No fevers. No streaking redness. She request that I open the lesion. She also request that I do not use any lidocaine Review of Systems Narrative: Constitutional symptoms: Negative except as documented in HPI. Skin symptoms: Negative except as documented in HPI. Eye symptoms: Negative except as documented in HPI. ENMT symptoms: Negative except as documented in HPI. Respiratory symptoms: Negative except as documented in HPI. Cardiovascular symptoms: Negative except as documented in HPI. Gastrointestinal symptoms: Negative except as documented in HPI. Genitourinary symptoms: Negative except as documented in HPI. Musculoskeletal symptoms: Negative except as documented in HPI. Neurologic symptoms: Negative except as documented in HPI. Psychiatric symptoms: Negative except as documented in HPI. Endocrine symptoms: Negative except as documented in HPI. PFSH ED PFSH: Medical History Nicotine dependence, cigarettes, uncomplicated GERD (gastroesophageal reflux disease) Hyperlipidemia Surgical History Hx of section H/O sinus surgery Family History Father Lung disease COPD Social History Smoking and tobacco/nicotine status: current every day tobacco/nicotine user cigarettes Packs smoked per day: 2 Years cigarettes smoked: 41 [ Other cigarette details: Started at age 16] Quit status (tobacco/nicotine): considering quitting Alcohol intake: never Substance/Drug Use: never Lives independently: Yes Household members: children Marital status: Current occupational status: employed 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 Skin: warm and dry, there is about a 4 cm round area of induration with a blister centrally. This is black. Head: Normocephalic Neck: Trachea midline Eye: Extraocular movements are intact. Ears, nose, mouth and throat: Oral mucosa moist Respiratory: Respirations are non-labored Musculoskeletal: Normal ROM Neurological: Alert and oriented, No focal neurological deficit observed. Psychiatric: Cooperative, appropriate mood & affect. Course Vital Signs: Vital signs: Vital Signs Temperature 97.8 F 01/16/24 20:10 Pulse Rate 94 01/16/24 20:10 Respiratory Rate 15 01/16/24 20:10 Blood Pressure 163/78 01/16/24 20:10 Pulse Oximetry 95 01/16/24 20:10 Oxygen Delivery Me thod Room Air 01/16/24 20:10 MDM - Skin/Abscess/Foreign Bdy Medicial Decision Making Incision and drainage. Time:09 Confirmed patient, procedure, side, and site. Time out performed prior to procedure. Consent was obtained by patient and/or responsible constitution party. Indication: Abscess Pre procedure: Circulation, motor, sensory intact Location: Dorsum of left hand Anesthesia: None Area prepared by sterile field with betadine, saline. Approximate 1 cm incision was made, there was basically no drainage. This appears to have been a small blood blister or bruise. Post procedure examination: Circulation, motor, sensory intact. Patient tolerated the procedure well. No complications. Total time min. Pt advised to keep the area clean and dry, wash twice per day with antibacterial soap and water. Take antibiotics as prescribed. Assessment and plan: Cellulitis Abscess -Increasing her dose of clindamycin to cover skin - Discharged home - Discussed plan with patient. Answered any questions. - Evaluation and treatment of this problem were appropriate in the emergency setting. No radiology studies performed this visit Discharge Plan Discharge Patient Disposition: Home Clinical Impression: Cellulitis Condition: Stable Prescriptions: New clindamycin HCl 300 mg capsule 600 mg PO Q8H 10 Days Qty: 60 0RF diclofenac sodium 50 mg tablet,delayed release (DR/EC) 50 mg PO Q12H Qty: 20 0RF No Action Multiple Vitamin, Womens Tablet 1 tab PO DAILY ondansetron 4 mg tablet,disintegrating 4 mg PO Q8H PRN (Reason: nausea and vomiting) Qty: 15 0RF loratadine [Allergy Relief (loratadine)] 10 mg tablet 10 mg PO DAILY ascorbate calcium (vitamin C) 500 mg tablet 500 mg PO DAILY mecobalamin (vitamin B12) 1,000 mcg lozenge 1,000 mcg PO DAILY Rx Instructions: allow to dissolve in mouth OR may chew lightly before swallowing cholecalciferol (vitamin D3) 10 mcg (400 unit) capsule 10 mcg PO DAILY budesonide-formoterol [Symbicort] 80-4.5 mcg/actuation HFA aerosol inhaler 1 inh inhalation BID Qty: 10.2 6RF fluticasone propionate [Children's Flonase Allergy Rlf] 50 mcg/actuation spray,suspension 1 spray intranasal BID PRN (Reason: allergy symptoms) Qty: 16 11RF Rx Instructions: administer into each nostril albuterol sulfate 90 mcg/actuation HFA aerosol inhaler 2 inh inhalation QID PRN (Reason: shortness of breath or wheezing) Qty: 8.5 2RF bupropion HCl [Wellbutrin XL] 150 mg tablet extended release 24 hr 150 mg PO QAM Qty: 30 11RF famotidine [Pepcid] 20 mg tablet 20 mg PO BID Qty: 60 11RF nystatin 100,000 unit/mL suspension 10 ml PO DAILY Qty: 473 0RF Rx Instructions: administer 1/2 of dose in each side of the mouth guaifenesin 1,200 mg tablet extended release 12hr 1,200 mg PO BID Qty: 14 0RF Discharge Orders: Discharge ED (Routine); Ordered 01/16/24 Ordered By: Dior Rios Referrals: Yakov Edwards MD [Primary Care Provider] - 4-7 days (Please have your doctor reevaluate this wound in 3 to 4 days.) Discharge Diet: Usual diet Discharge Activity: Increase activity as tolerated Patient Instructions: Cellulitis (ED) Activity Restrictions/Additional Instructions: Thank you for choosing [facility] for your healthcare needs today. Please realize this is an emergency room and that we are providing you with a medical screening exam and this may not be complete and all inclusive of all the testing and or work up that you may need to determine your ailment or severity of your illness. You have been screened and evaluated and felt safe for discharge. Health conditions do change or evolve sometimes and as such it is important that you follow up with your Primary Doctor to be re checked, 3-5 days is a general good time frame for follow up. You are always welcome to return to the ED for re assessment if your symptoms are worsening or you have new concerns Coding Level of Care Code ED Table Games Floor Supervisor for Cristal Love
[2024-01-16] MEDS: clindamycin 150 mg Capsule 600 MG PO (21:51)
[2024-01-16 22:11] VITALS: BP 148/79; PULSE 91; RESP 16; TEMP 36.6; O2SAT 96
== END 2024-01-16 22:14 | disposition home or self-care (01) ==
PROVIDERS: Emergency Provider Emergency Medicine; PCP Family Medicine
DX: L03.113 Cellulitis of right upper limb (principal); E78.5 Hyperlipidemia, unspecified; F17.210 Nicotine dependence, cigarettes, uncomplicated; T14.8XXA Other injury of unspecified body region, initial encounter; X58.XXXA Exposure to other specified factors, initial encounter
CPT/HCPCS: 10140; 99283

== ENCOUNTER → 2024-05-03 13:28 | Outpatient (BNVA) | payer BC, MEDICAID, SELFPAY | PROVIDERS: PCP Family Medicine; Visit Provider Podiatrist Foot & Ankle Surgery | DX: M77.41 Metatarsalgia, right foot; M25.871 Other specified joint disorders, right ankle and foot; M21.611 Bunion of right foot | CPT/HCPCS: 73630 ==

== ENCOUNTER 2024-06-14 06:41 | Day surgery (SDC) | payer BC, MEDICAID, SELFPAY ==
[2024-06-14] MEDS: sodium chloride 0.9% 1,000 ML 30 ML IV (07:10)
[2024-06-14 07:14] VITALS: BMI 34.0
[2024-06-14 07:20] VITALS: BP 145/79; PULSE 106; RESP 18; TEMP 36.6; O2SAT 96
--- NOTE | 2024-06-14 07:22 | P.ANESASSM_ITS ---
Pre-Anesthetic Assessment Height/Weight: Height 1.55 m Weight 81.647 kg Temp Pulse Resp BP Pulse Ox O2 Del Method 97.8 F 106 H 18 145/79 96 Room Air 06/14/24 07:20 06/14/24 07:20 06/14/24 07:20 06/14/24 07:20 06/14/24 07:20 06/14/24 07:20 Operation Date: 06/14/24 07:45 Proposed Procedures p EGD - 16024,92329, g0105, k58.9(Not Applicable) - Dwayne Blandon MD s Colonoscopy(Not Applicable) - Dwayne Blandon MD Familial anesthetic complications: None Was Beta Chelsey taken within 24 hours: N/A Was Clonidine taken within 24 hours: N/A Last intake: Intake Last Liquid Date 06/13/24 Last Liquid Time 23:30 Last Solid Date 06/12/24 Social No alcohol and No tobacco former smoker Exam alert, oriented x 3, clear to auscultation bilaterally and regular rate & rhythm Airway Mallampati: Class II Dentition: partials Pulmonary Asthma and Chronic Obstructive Pulmonary Disease GI Gastroesophageal Reflux Disease Anesthetic Plan ASA status: 3 Anesthesia: MAC Risk of > 500 ml blood loss (7ml/kg in children): No Medications/Allergies Home Medications Medication Instructions Recorded Confirmed Last Taken Type temsixpfhzdw-Ky-poct-minerals 1 tab PO DAILY 11/29/19 06/10/24 06/13/24 History (Multiple Vitamin, Womens tablet) ascorbate calcium (vitamin C) 500 500 mg PO DAILY 11/25/22 06/10/24 06/13/24 History mg tablet loratadine 10 mg tablet (Allergy 10 mg PO DAILY 11/25/22 06/10/24 06/13/24 History Relief (loratadine)) mecobalamin (vitamin B12) 1,000 1,000 mcg PO DAILY 11/25/22 06/14/24 Unknown History mcg lozenges cholecalciferol (vitamin D3) 10 10 mcg PO DAILY 07/29/23 06/10/24 06/13/24 History mcg (400 unit) capsule albuterol sulfate 90 mcg/actuation 2 inh inhalation QID PRN shortness 09/24/23 06/14/24 06/14/24 Rx aerosol inhaler of breath or wheezing #8.5 grams budesonide-formoterol HFA 80 1 inh inhalation BID #10.2 grams 11/06/23 06/10/24 06/09/24 Rx mcg-4.5 mcg/actuation aerosol inhaler (Symbicort) benzocaine 15 mg-menthol 2.6 mg 1 carolyn mucous membrane Q2H PRN sore 03/16/24 06/14/24 Unknown Rx lozenges (Cepacol Sore Throat throat #16 ea (benzocaine-menthol)) ondansetron 8 mg disintegrating 8 mg PO Q8H PRN nausea and 05/23/24 06/14/24 Unknown Rx tablet vomiting 5 days #15 tabs Probiotic 1 cap PO DAILY 06/10/24 06/10/24 06/13/24 History fluticasone propionate 50 1 spray intranasal BID PRN allergy 06/10/24 06/10/24 06/13/24 History mcg/actuation nasal symptoms spray,suspension (Flonase Allergy Relief) meloxicam 15 mg tablet 15 mg PO DAILY 06/10/24 06/14/24 Unknown History omeprazole 20 mg capsule,delayed 20 mg PO BID 06/10/24 06/10/24 06/13/24 History release Allergies Allergy/AdvReac Type Severity Reaction Status Date / Time amoxicillin Allergy Severe ALGY-Anaphy Verified 06/10/24 08:30 laxis Sulfa (Sulfonamide Allergy ALGY-Anaphy Verified 06/10/24 08:30 Antibiotics) [facility] Medical History Nicotine dependence, cigarettes, uncomplicated GERD (gastroesophageal reflux disease) Hyperlipidemia Surgical History (Updated 05/27/24 @ 10:[address]) Hx of section H/O sinus surgery Family History Father Lung disease COPD Social History (Updated 05/27/24 @ 10:[address]) Smoking and tobacco/nicotine status: former use of tobacco/nicotine Quit status (tobacco/nicotine): considering quitting Alcohol intake: never Substance/Drug Use: never Lives independently: Yes Household members: children Marital status: Current occupational status: employed 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
--- NOTE | 2024-06-14 08:09 | W.PM.OPSUD ---
Surgery/Procedure H&P Update DATE OF PROCEDURE: June 14, 2024 DATE H&P PERFORMED: 05/27/24 H&P UPDATE INFORMATION: I have reviewed H&P completed within last 30 days, I have examined patient prior to procedure and No changes to prior documentation PLANNED PROCEDURE: Operation Date: 06/14/24 07:45 Proposed Procedures p EGD - 01174,81439, g0105, k58.9(Not Applicable) - Dwayne Blandon MD s Colonoscopy(Not Applicable) - Dwayne Blandon MD
[2024-06-14 08:40] VITALS: BP 114/61; PULSE 68; RESP 16; TEMP 36.6; O2SAT 91
[2024-06-14 08:53] VITALS: BP 122/66; PULSE 65; RESP 16; O2SAT 94
[2024-06-14 09:10] VITALS: BP 117/69; PULSE 67; RESP 18; O2SAT 94
--- NOTE | 2024-06-14 09:25 | ANE.PACU2 ---
Inpatient post-anesthesia follow up: Airway intact: Yes Vital signs: Temperature 97.8 F Pulse Rate 67 Respiratory Rate 18 Blood Pressure 117/69 Pulse Oximetry 94 Oxygen Delivery Me thod Room Air Oxygen Flow Rate 4 Fraction of Inspir ed Oxygen Hydration adequate: Yes Nausea and vomiting: No Pain level: 1 Mental status: Baseline
== END 2024-06-14 09:25 | disposition home or self-care (01) ==
PROVIDERS: PCP Family Medicine; Visit Provider Student in an Organized Health Care Education/Training Program
PROC: 0DJ08ZZ Inspection of Upper Intestinal Tract, Via Natural or Artificial Opening Endoscopic (ICD-10-PCS; CPT 43235; principal; 2024-06-14 07:45)
PROC: 0DJD8ZZ Inspection of Lower Intestinal Tract, Via Natural or Artificial Opening Endoscopic (ICD-10-PCS; CPT 45378; 2024-06-14 07:45)
DX: Z12.11 Encounter for screening for malignant neoplasm of colon (principal); K21.9 Gastro-esophageal reflux disease without esophagitis; E78.5 Hyperlipidemia, unspecified; K58.9 Irritable bowel syndrome, unspecified; K29.70 Gastritis, unspecified, without bleeding; Z87.891 Personal history of nicotine dependence; J44.9 Chronic obstructive pulmonary disease, unspecified
CPT/HCPCS: 43239; 45380; 88305; 88342; J2704; J7030

== ENCOUNTER 2024-07-13 07:44 | Outpatient (CLI) | payer BC, MEDICAID, SELFPAY ==
--- NOTE | 2024-07-13 07:47 | MM_ITS ---
WS: [id number] VIEWS: MLO and CC views both breasts. 3D digital tomosynthesis is also included in this exam. Comparison made with prior exam of 10/19/2010, 11/01/2011, 05/04/2014, 08/21/2016, 06/25/2023, 04/13/2013, 03/13/2022. Findings: There are scattered areas of fibroglandular density. No sign of suspicious mass, tumor calcification or architectural distortion. MM/MM scr BI tomosynthesis [id number] Impression: BI-RADS: 2 - Benign. FOLLOW-UP: 1 Year Follow-up This mammogram was also analyzed by the Computer Aided Detection System R2 Imag e Guard Captain.
== END 2024-07-13 07:45 | disposition home or self-care (01) ==
LOC: RAD 07:45
PROVIDERS: PCP Family Medicine; Visit Provider Family Medicine
DX: Z12.31 Encounter for screening mammogram for malignant neoplasm of breast (principal); R92.323 Mammographic fibroglandular density, bilateral breasts
CPT/HCPCS: 77063; 77067

== ENCOUNTER 2024-08-08 20:52 | Emergency (ER) | payer BC, MEDICAID, SELFPAY ==
[2024-08-08 21:03] VITALS: BP 143/73; PULSE 79; RESP 18; TEMP 36.7; O2SAT 97
--- NOTE | 2024-08-08 21:08 | ECG_ITS ---
[facility]: 2024-[facility]-08 Pat Name: Valerie Traylor Department: Room: Gender: Female Floor Representative: : 1965 Requested By: Fabien Turcios Order Number: [id number] Sahara MD: Yonathan Tovar M.D. Measurements Intervals [place] Rate: 69 P: 48 KS: 176 QRS: 42 QRSD: 86 T: 35 QT: 369 QTc: 397 Interpretive Statements SINUS RHYTHM LOW QRS VOLTAGE IN PRECORDIAL LEADS [QRS DEFLECTION < 1.0 mV IN CHEST LEADS] Compared to ECG 12/21/2023 02:29:38 Low QRS voltage now present Electronically Signed On 08-08-2024 22:27:12 PLANT TECHNICAL SPECIALIST by Yonathan Tovar M.D. [id number]
== END 2024-08-09 01:11 | disposition left against medical advice (07) ==
PROVIDERS: Emergency Provider Family Medicine; PCP Family Medicine
DX: Z53.21 Procedure and treatment not carried out due to patient leaving prior to being seen by health care provider (principal)
CPT/HCPCS: 93005

== ENCOUNTER 2024-08-12 08:50 | Outpatient (CLI) | payer BC, MEDICAID, SELFPAY ==
--- NOTE | 2024-08-12 09:00 | CT_ITS ---
WS: [id number] CT chest w con* [id number] HISTORY: hemoptysis TECHNIQUE: Axial imaging performed through the thorax. Coronal and sagittal reformats are submitted. All CT scans at [facility] use at least one of these dose optimization techniques: automated exposure control; mA and/or kV adjustment per patient size (includes targeted exams where dose is mat ched to clinical indication); or iterative reconstruction. CONTRAST: Omnipaque 350; 100 mL IV. DLP: 497.12 mGy.cm COMPARISON: 10/23/2023, 03/18/2023 Lungs and central airway: Advanced centrilobular emphysema. Groundglass attenuation is slightly impro mely since 10/23/2023 but not resolved. No progression. 6 mm nodule RIGHT lung base is new. No endobron chial secretions or mass identified. Pleura: Normal. No pleural effusion. Heart and pericardium: Normal size heart with no pericardial effusion. Mediastinum and violette: Indeterminate RIGHT hilar lymph node at 12 mm. Vessels: LEFT subclavian artery arises from the base of the innominate. Mild atherosclerosis aorta. N ormal size pulmonary artery. Chest wall and lower neck: No soft tissue masses. Upper abdomen: Small hiatal hernia. Diffuse hepatic steatosis. Enhancement in the anterior liver is i ncompletely visualized. This is most likely a hemangioma due to its enhancement pattern. No adrenal m ass. Osseous structures: No destructive process. CT/CT chest w con* [id number] IMPRESSION: 1. No endobronchial mass. 2. Advanced centrilobular emphysema. 3. Scattered areas of groundglass attenuation but greatest within the RIGHT alysha ng with mild improvement since 10/23/2023. New 5 mm noncalcified nodule at the R IGHT lung base. 4. Indeterminate but slightly enlarged RIGHT hilar lymph node at 12 mm. May be reactive or neoplastic lymph node. 5. Recommend follow-up chest CT in 3 months. 6. Hepatic steatosis.
[2024-08-12] MEDS: iohexol 350 mg/mL 500 mL Btl (per mL) IV (09:18)
== END 2024-08-12 08:51 | disposition home or self-care (01) ==
PROVIDERS: PCP Family Medicine; Visit Provider Family Medicine
DX: R91.1 Solitary pulmonary nodule (principal); J43.2 Centrilobular emphysema; R59.0 Localized enlarged lymph nodes; K76.0 Fatty (change of) liver, not elsewhere classified; R04.2 Hemoptysis
CPT/HCPCS: 71260

== ENCOUNTER → 2024-08-29 10:20 | Outpatient (BNVA) | payer BC, MEDICAID, SELFPAY | PROVIDERS: PCP Family Medicine; Visit Provider Registered Nurse Neonatal Intensive Care | DX: J02.9 Acute pharyngitis, unspecified (principal) | CPT/HCPCS: 87880 ==

== ENCOUNTER → 2024-09-22 08:01 | Outpatient (BNVA) | payer BC, MEDICAID, SELFPAY | PROVIDERS: PCP Family Medicine; Visit Provider Family Medicine | DX: K76.0 Fatty (change of) liver, not elsewhere classified (principal) | CPT/HCPCS: 80053; 80061; 83036 ==

== ENCOUNTER 2024-11-22 14:27 | Outpatient (CLI) | payer BC, MEDICAID, SELFPAY ==
--- NOTE | 2024-11-22 14:30 | CT_ITS ---
WS: [id number] CT chest wo con [id number] HISTORY: f/u on lung nodule TECHNIQUE: Axial imaging performed through the thorax. Coronal and sagittal reformats are submitted. All CT scans at [facility] use at least one of these dose optimization techniques: automated exposure control; mA and/or kV adjustment per patient size (includes targeted exams where dose is matched to clinical indication); or iterative reconstruction. CONTRAST: None DLP: 451.85 mGy.cm COMPARISON: 08/12/2024, 10/23/2023, 03/18/2023, 05/29/2020 Lungs and central airway: Hyperexpanded lungs with centrilobular emphysema. Most significant areas of emphysema in the upper lung ordonez along with interstitial thickening and scarring which is stable. Recently described noncalcified nodule at the RIGHT lung base is nearly completely resolved. There is a tiny 2 to 3 mm noncalcified nodule persisting. No new mass or nodule identified. Pleura: Normal. No pleural effusion. Heart and pericardium: Normal size heart with no pericardial effusion. Mediastinum and violette: Small mediastinal and hilar lymph nodes. Vessels: Minimal atherosclerosis aorta. Pulmonary artery size is equal to the aorta. Chest wall and lower neck: No soft tissue masses. Upper abdomen: Visualized liver is of marked decreased attenuation consistent with hepatic steatosis. Liver also appears enlarged. Moderate size hiatal hernia. No adrenal mass. Suprarenal aortic calcifications. Scattered splenic artery calcifications. Osseous structures: Mild thoracic spondylosis. No destructive bone lesions. CT/CT chest wo con [id number] IMPRESSION: 1. Near complete resolution of the previously described RIGHT lower lobe pulmo nary nodule. Minimal 2 to 3 mm noncalcified nodule persist. No additional follo w-up necessary. 2. Advanced bilateral centrilobular emphysema, most significant in the upper l tolu ordonez. 3. No mediastinal or hilar adenopathy. 4. Marked hepatic steatosis. Liver appears enlarged but is not completely incl uded on this CT. 5. Moderate size hiatal hernia.
== END 2024-11-22 14:28 | disposition home or self-care (01) ==
LOC: RAD 14:28
PROVIDERS: PCP Family Medicine; Visit Provider Family Medicine
DX: R91.1 Solitary pulmonary nodule (principal); J43.2 Centrilobular emphysema; K76.0 Fatty (change of) liver, not elsewhere classified; R93.2 Abnormal findings on diagnostic imaging of liver and biliary tract; K44.9 Diaphragmatic hernia without obstruction or gangrene; R59.0 Localized enlarged lymph nodes; R93.89 Abnormal findings on diagnostic imaging of other specified body structures; I70.0 Atherosclerosis of aorta; I70.8 Atherosclerosis of other arteries; M40.294 Other kyphosis, thoracic region
CPT/HCPCS: 71250

== ENCOUNTER 2025-01-06 08:10 | Emergency (ER) | payer BC, MEDICAID, SELFPAY ==
[2025-01-06 08:27] VITALS: BP 180/105; PULSE 78; RESP 18; TEMP 36.7; O2SAT 97; BMI 35.2
--- NOTE | 2025-01-06 08:36 | ED_ITS ---
HPI - Extremity Problem General: Chief complaint: Extremity Problem,Nontraumatic Stated complaint: fall right leg tingle Time Seen by Provider: 01/06/25 08:19 History of Present Illness: 60 -year-old female presents emergency r oom she has ecchymosis on her right leg from the fall she took through her deck 4 days ago. She has been ambulating on her leg. She has not had any chest pain or discomfort she had some numbness in her leg earlier today but is already resolved. No chest pain Associated symptoms: Deny chest pain, fever(s) or rash Related Data Home Medications ?Medication ?Instructions ?Recorded ?Confirmed loratadine 10 mg tablet (Allergy 10 mg PO DAILY 01/06/25 Relief (loratadine)) Previous Rx's ?Medication ?Instructions ?Recorded omeprazole 20 mg capsule,delayed 20 mg PO BID 30 days #60 caps 07/01/24 release budesonide-formoterol HFA 80 1 inh inhalation BID #10. 2 grams 11/26/24 mcg-4.5 mcg/actuation aerosol inhaler (Symbicort) Allergies Allergy/AdvReac Type Severity Reaction Status Date / Time amoxicillin Allergy Severe ALGY-Anaphy Verified 01/03/25 16:02 laxis Sulfa (Sulfonamide Allergy ALGY-Anaphy Verified 01/03/25 16:02 Antibiotics) laxis Review of Systems Const: Denies: fever(s) or chills Card: Denies: chest pain Resp: Denies: dyspnea GI: Denies: abdominal pain : Denies: dysuria, urinary frequency or urinary urgency Musc: Denies: neck pain or back pain Skin/Breast: Denies: rash PFSH ED PFSH: Medical History Foot pain Viral URI Acute sinusitis Serous otitis media Fatty liver Nicotine dependence, cigarettes, uncomplicated GERD (gastroesophageal reflux disease) Hyperlipidemia Surgical History Hx of section H/O sinus surgery Family History Father Lung disease COPD Social History Smoking and tobacco/nicotine status: never used tobacco/nicotine Quit status (tobacco/nicotine): considering quitting Alcohol intake: never Substance/Drug Use: never Lives independently: Yes Household members: children Marital status: Current occupational status: employed 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 Current occupational exposures/hazards: 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) Do you think of yourself as: Straight/Heterosexual Current gender identity: Female Physical Exam Const: COMMON NORMALS: no acute distress GENERAL APPEARANCE: cooperative and comfortable ORIENTATION/CONSCIOUSNESS: Yes awake, Yes oriented to person, Yes oriented to place and Yes oriented to time HENMT: COMMON NORMALS: normocephalic, atraumatic and hearing grossly normal bilaterally HEAD & SCALP: normocephalic and atraumatic Resp: COMMON NORMALS: normal respiratory effort, No retractions, No use of accessory muscles and clear to auscultation bilaterally AUSCULTATION: clear to auscultation bilaterally Cardio: COMMON NORMALS: regular rate, regular rhythm and No murmurs present (Cardio) RATE: regular rate RHYTHM: regular rhythm GI: COMMON NORMALS: Soft to palpation and No hepatosplenomegaly present AUSCULTATION: Yes normoactive bowel sounds PALPATION: Yes Soft to palpation, No Tenderness to palpation present (GI), No Guarding due to palpation present (GI) and Yes No hepatosplenomegaly present Extremity: OTHER: Examination of the right lower leg patient has superficial ecchymosis but no hematoma there is no significant swelling of the leg the ecchymosis on the lateral aspect leg extends from the knee distal to the lateral malleolus. Dorsalis pedis posterior tibialis pulses are normal negative Homans. Neurovascularly the right foot is intact good pulses at the dorsalis pedis posterior tibialis normal sensation Neuro: SENSORIUM/ORIENTATION: Yes oriented to person, Yes oriented to place and Yes oriented to time Skin: COMMON NORMALS: no rashes or lesions noted GENERAL SKIN EXAM: no rashes or lesions noted Course Vital Signs: Vital signs: Vital Signs Temperature 98.0 F 01/06/25 08:27 Pulse Rate 72 01/06/25 09:05 Respiratory Rate 18 01/06/25 08:27 Blood Pressure 142/81 01/06/25 09:05 Pulse Oximetry 98 01/06/25 09:05 Oxygen Delivery Me thod Room Air 01/06/25 08:27 MDM - Extremity (Nontraumatic) Medical Decision Making No sign of DVT at this point discussed with patient he ecchymosis is a superficial and the respiratory exam is not suggestive of DVT. Will discharge patient home can use [id number] Tylenol ibuprofen or Aleve as needed elevate leg ice as needed follow-up with primary care if not improving or with any other symptoms No radiology studies performed this visit Discharge Plan Discharge Patient Disposition: Home Clinical Impression: Traumatic ecchymosis of left lower leg Condition: Stable Prescriptions: No Action omeprazole 20 mg capsule,delayed release(DR/EC) 20 mg PO BID 30 Days Qty: 60 12RF loratadine [Allergy Relief (loratadine)] 10 mg tablet 10 mg PO DAILY budesonide-formoterol [Symbicort] 80-4.5 mcg/actuation HFA aerosol inhaler 1 inh inhalation BID Qty: 10.2 6RF Discharge Orders: Discharge ED (Routine); Ordered 01/06/25 Ordered By: Ryan Pace Referrals: Yakov Edwards MD [Primary Care Provider, Family Practice] Discharge Diet: Usual diet Discharge Activity: Increase activity as tolerated Patient Instructions: Opioid Safety, Pain Management Activity Restrictions/Additional Instructions: Thank you for choosing [facility] for your healthcare needs today. It is very important that you follow up as instructed or that you return to the Emergency Department should you have concerns or if your condition changes or worsens in any way. You are seen in the emergency room after a fall. There was significant amount of bruising but no sign of a deep vein thrombosis at this time neurologically and vascular exam was normal. Elevate foot it will take several days for the bruising to resolve. 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
[2025-01-06 09:05] VITALS: BP 142/81; PULSE 72; O2SAT 98
== END 2025-01-06 09:07 | disposition home or self-care (01) ==
PROVIDERS: Emergency Provider Family Medicine; PCP Family Medicine
DX: S80.12XA Contusion of left lower leg, initial encounter (principal); E78.5 Hyperlipidemia, unspecified; W19.XXXA Unspecified fall, initial encounter
CPT/HCPCS: 99282

== ENCOUNTER 2025-02-27 11:28 | Emergency (ER) | payer BC, MEDICAID, SELFPAY ==
--- OUTSIDE RECORDS SUMMARY | 2024-02-23 04:32 | XMS_ITS | Continuity of Care Document ---
Author Organization [facility] Address [address] [id number] [address] Phone Care Team Providers Care Landscape Gardener Name Role Phone Fatoumata Plata OD Unavailable Unavailable Allergies, Adverse Reactions, Alerts Substance Reaction Status Criticality Sulfa (Sulfonamide Antibiotics) Active No Information amoxicillin Active No Information Penicillins Active No Information Medications Medication Instructions Dosage Effective Dates (start - stop) Status Comments clindamycin HCl 150 mg capsule take 1 capsule by oral route every 6 hours 150 MG - Active albuterol sulfate concentrate 5 mg/mL(0.5 %) solution for nebulization inhale 0.5 milliliter by inhalation route 3- 4 times every day via nebulizer 2.5 MG - Active OMEPRAZOLE (unknown strength) take 2 capsule by oral route every day before a meal Not Available - Active Procedures Procedure Date Vision [facility] frames purchases Lens sphcyl bifocal 4.00d/.1 Lens spher bifoc plano 4.00d Tint photochromatic lens/es Tint photochromatic lens/es FITTING OF SPECTACLES REFRACTION EYE EXAM, NEW PATIENT Extraction, Erupted Tooth Or Exposed Teresa t (Elevati Intraoral Periapical First Film Limited Oral Evaluation Problem Focused Denture Adjustment EDR Approval Note No Work Today/No Charge EDR Approval Note Denture Adjustment EDR Approval Note Maxillary Partial Denture Cast Metal Framework W EDR Approval Note Wax Try-In Framework Try-In EDR Approval Note Denture Impression Secondary EDR Approval Note Partial Impression EDR Approval Note EDR Approval Note Pre-Pay For Services Resin-Based Composite Two Surfaces, Anterior Resin-Based Composite Three Surfaces, Posterior Extraction, Erupted Tooth Or Exposed Teresa t ([facility] Extraction, Erupted Tooth Or Exposed [facility] t [facility]val Note Limited Oral Evaluation Problem Focused Extraction, Erupted Tooth Or Exposed Teresa t ([facility] Extraction, Erupted Tooth Or Exposed Teresa t ([facility] Intraoral Periapical First Film Limited oral eval, x-ray & 1st extractio n Urgent Each Additional Extraction EDR Approval Note Extraction, Erupted Tooth Or Exposed Teresa t ([facility] Extraction, Erupted Tooth Or Exposed Teresa t ([facility] Pre-Pay For Services Amalgam Two Surfaces, Primary Or Permanent EDR Approval Note Comprehensive Oral Evaluatio n New Or Established Bitewings Two Films Intraoral Periapical First Film EDR Approval Note Intraoral Periapical Each Additional Film Intraoral Periapical Each Additional Film EDR Approval Note Panoramic Film EDR Approval Note Comprehensive exam & x-ray Intraoral Periapical First Film Limited Oral Evaluation Problem Focused EDR Approval Note Limited exam & x-ray Advance Directives Directive Yes / No Effective Date File Name No Information Encounters Encounter Description Practice Location Reason(s) For Visit Diagnoses Date Provider Providers Copied on Encounter [facility], [id number]- [place], [place], [id number], [place] tel:[phone] [facility] [address] Vision No Information 4 Bonibalaji Ham. [address] [place], [address], [place]. tel:[phone] [facility], [id number]- [place], [address], [place] tel:[phone] [facility] [address] Vision blurry vision (chief complaint) pain (chief complaint) Encounter for fit/adjst of spectacles and contact lensesMyopia, bilateralRegul ar astigmatism, right eyePresbyopiaA ge-related nuclear cataract, bilateralKerat oconjunct sicca, not specified as Sjogren's, bilateral 4 Boni Ham. [address] [place], [address], [place]. tel:[phone] Referring Provider: Fatoumata Plata, [address] [place], [address]. tel:[phone] [facility], [id number]- [place], [id number], [place] tel:[phone] [facility] No Information 4 Surekha Sparks. [address] [place] [address], [address], [place]. tel:[phone] [facility], [id number] [place], [id number], [place] tel:[phone] [facility] Encounter for dental exam and cleaning w/o abnormal findings 4 Kyara Ayala. [address] [place], [address], [place]. tel:[phone] Referring Provider: Jamie Sparrow, [address] [place], [address]. tel:[phone] [facility], [id number]- [place], [place], [id number], [place] tel:[phone] [facility] Encounter for dental exam and cleaning w/o abnormal findings 4 Jeff Fang. [address], [place], [address], [place]. tel:[phone] Referring Provider: Leoncio Aguilar, [address] [place], [address]. tel:[phone] [facility], [id number]- [place], [address], [place] tel:[phone] [facility] Encounter for dental exam and cleaning w/o abnormal findings 0 Brittany Cervantes. [address] [place], [address], [place]. tel:[phone] Referring Provider: Billy Soto, [address] [place], [address]. tel:[phone] [facility], [id number]- [place], [id number], [place] tel:[phone] [facility] Encounter for dental exam and cleaning w/o abnormal findings 201 9 Brittany Cervantes. [address] [place], [address], [place]. tel:[phone] Referring Provider: Billy Soto, [address] [place], [address]. tel:[phone] [facility], [id number]- [place], [address], [place] tel:[phone] [facility] Encounter for dental exam and cleaning w/o abnormal findings December-3 9 Brittany Cervantes. [address] [place], [address], [place]. tel:[phone] Referring Provider: Billy Soto, [address] [place], [address]. tel:[phone] [facility], [id number]- [place], [id number], [place] tel:[phone] [facility] Encounter for dental exam and cleaning w/o abnormal findings December-0 2- 9 Brittany Cervantes. [address] [place], [address], [place]. tel:[phone] Referring Provider: iBlly Soto, [address] [place], [address]. tel:[phone] [facility], [id number] [id number], [address], [place] tel:[phone] [facility] Encounter for dental exam and cleaning w/o abnormal findings Nov-1 8- 9 Brittany Cervantes. [address] [place], [address], [place]. tel:[phone] Referring Provider: Billy Soto, [address] [place], [address]. tel:[phone] [facility], [id number], [address], [place] tel:[phone] [facility] Encounter for dental exam and cleaning w/o abnormal findings Nov-0 9 Brittany Cervantes. [address] [place], [address], [place]. tel:[phone] Referring Provider: Billy Soto, [address] [place], [address]. tel:[phone] [facility], [id number], [address], [place] tel:[phone] [facility] Encounter for dental exam and cleaning w/o abnormal findings 9 Brittany Cervantes. [address] [place], [address], [place]. tel:[phone] Referring Provider: Billy Soto, [address] [place], [address]. tel:[phone] [facility], [id number]- [facility], [place], [place], [address], [place] tel:[phone] [facility] Encounter for dental exam and cleaning w/o abnormal findings 9 No Information [facility], [id number]- [place], [address], [place] tel:[phone] [facility] Encounter for dental exam and cleaning w/o abnormal findings 9 No Information Referring Provider: Neri Bliss, [address] [place], [address]. tel:[phone] [facility], [id number]- [facility], [place], [place], [id number], [place] tel:[phone] [facility] Encounter for dental exam and cleaning w/o abnormal findings 8 No Information [facility], [id number]- [place], [address], [place] tel:[phone] [facility] Encounter for dental exam and cleaning w/o abnormal findings 8 No Information [facility], [id number]- [place], [place], [address], [place] tel:[phone] [facility] Encounter for dental exam and cleaning w/o abnormal findings 8 No Information [facility], [id number]- [facility], [place], [place], [address], [place] tel:[phone] [facility] Encounter for dental exam and cleaning w/o abnormal findings 8 Sussy Zaidi. [address] [place], [place], [address], [place]. tel:[phone] Referring Provider: Dejuan Wang, [address] [place], [address]. tel:[phone] Family History Family Member Type Diagnosis Age At Onset Mother Problem (finding) Alive and well Father Problem (finding) Alive and well Payers Payer name Insurance type Covered alliance party ID Christinea willard(s) V October Vision CI [id number] Social History Type Description Quantity Date Captured Comments Alcohol Use Details Unknown Caffeine Use Details Unknown Tobacco Use Status No Information Smoking Status No Information Sex Female Sexual Orientation Heterosexual Gender Identity Female Chief Complaint And Reason For Visit No Information Reason For Referral Reason For Referral No Information Plan Of Treatment Date Type Action Status Goal Tobacco cessation counseling completed Goal Tobacco cessation counseling completed Goal Tobacco cessation counseling completed Goal Tobacco cessation counseling completed Goal Tobacco cessation counseling completed Goal Tobacco cessation counseling completed Goal Tobacco cessation counseling completed Goal Tobacco cessation counseling completed Goal Tobacco cessation counseling completed Goal Tobacco cessation counseling completed Goal Tobacco cessation counseling completed Goal Tobacco cessation counseling completed History Of Present Illness Encounter Date Complaint History Of Prese nt Illness blurry vision BALAJI 4 to 5 years . Blurry vision in all areas. Pt thinks her vision is worse. pain Pain in her righ t eye. Red and feels tired. This has been going on for 3 weeks. Pt had pervious episode had MRI and visited Dr. Romero (ENT) to resolve the issue, she's unsure of the name of it. Functional Status Date Functional Assessmen t No Information Instructions Date Instruction Additional Infor tonny Impression/Plan Lifestyle education Related to D ental Examination Lifestyle education Related to D ental Examination Lifestyle education Related to D ental Examination Lifestyle education Related to D ental Examination Lifestyle education Related to D ental Examination Lifestyle education Related to D ental Examination Lifestyle education Related to D ental Examination Lifestyle education Related to D ental Examination Lifestyle education Related to D ental Examination Lifestyle education Related to D ental Examination Lifestyle education Related to D ental Examination Lifestyle education Related to D ental Examination Assessments Type Assessment Date No Information Patient Care Teams Name Effective Dates (start - stop) Status Members No Information
--- OUTSIDE RECORDS SUMMARY | 2025-02-27 11:32 | XMS_ITS | Clinical Summary ---
Author Organization [facility] [facility] [employer] Address [address] Estrada: Epic Prelude ADT [place] [address] Care Team Providers Care Machine Container Washer Name Role Phone Yakov Edwards MD Primary Care Provider + [phone] Allergies Active Allergy Reactions Criticality Noted Date Comments Adhesive Rash Low 03/25/2019 Amoxicillin Anaphylaxis High 03/15/2019 Medications mv,Ca,min/iron/ FA/guarana/caff (ONE-A-DAY WOMEN'S ACTIVE ORAL) Take by mouth. 9 Active omeprazole (PriLOSEC) 20 mg Capsule, Delayed Release(E.C.) Take 20 mg by mouth daily. 9 Active atorvastatin (LIPITOR) 10 mg tablet Take 10 mg by mouth daily with supper. 9 Active tiotropium (Spiriva with HandiHaler) 18 mcg capsule INHALE 1 PUFF BY MOUTH ONCE DAILY 0 Active fluticasone propionate (FLONASE) 50 mcg/spray [place], Suspension nasal inhaler Administer 2 Sprays in each nostril daily. 16 Gram 5 9 Active dicyclomine (BENTYL) 10 mg capsule TAKE 1 CAPSULE BY MOUTH 4 TIMES DAILY NEEDED FOR IRRITABLE BOWEL SYNDROME CRAMPS 0 Active HYDROcodone-brooklynn taminophen (NORCO) 5-325 mg tabletIndicatio ns:Postoperativ e pain Take 1 Tablet by mouth every 4 hours as needed for Pain. Max Daily Amount: 6 Tablets 10 Tablet 0 9 Active Active Problems No known active problems Family History Medical History Relation Name Comments COPD Father Ashok Cancer Father Ashok Cancer Maternal Grandfather Cancer Maternal Grandmother COPD Mother Maria Fernanda Emphysema Mother Maria Fernanda High Cholesterol Mother Maria Fernanda Hypertension Mother Maria Fernanda GERD Sister 1 Nayla High Cholesterol Sister 1 Nayla GERD Sister 2 Anabela High Cholesterol Sister 2 Anabela Colon Cancer Neg Hx Relation Name Status Comments Father Ashok Maternal Grandfather Maternal Grandmother Mother Maria Fernanda Alive Sister 1 Nayla Alive Sister 2 Anabela Alive Social History Tobacco Use Types Packs/Day Years Used Date Smoking Tobacco: Every Day Cigarettes Smokeless Tobacco: Never Alcohol Use Standard Drinks/Week Comments Not Currently 0 (1 standard drink = 0.6 oz pur e alcohol) Comments Unknown Sex and Gender Information Value Date Recorded Sex Assigned at Not on file 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 Gender Identity Not on file Sexual Orientation Not on file Last Filed Vital Signs Vital Sign Reading Time Taken Comments Blood Pressure 131/80 04/24/2021 11:15 AM CDT Pulse 74 03/19/2021 9:18 AM CDT Temperature 36.4 C (97.6 F) 03/31/2019 12:08 PM CDT Respiratory Rate 12 09/21/2020 11:51 AM NECKTIE CENTRALIZING MACHINE OPERATOR Oxygen Saturation - - Inhaled Oxygen Concentration - - Weight 72 kg (158 lb 12.8 oz) 04/24/2021 11:15 A M CDT Height 154.9 cm (5' 1 ) 04/24/2021 11:15 AM CDT Body Mass Index 30 04/24/2021 11:15 AM CDT Plan of Treatment Health Maintenance Due Date Last Done Comments DTAP/TDAP/TD VACCINES (1 - Tdap) 01/03/1984 HPV/Cotest (21-29) 1986 CERVICAL CANCER SCREENING 1995 HPV/Cotest (30-65) 1995 PAP SMEAR 1995 BREAST CANCER SCREENING 2005 COLORECTAL SCREENING 2010 Colorectal Cancer Screening 2010 FIT-DNA Q 3 years 2010 FIT/FOBT Q 1 year 2010 Flex Sig/CT Colonography Q 5 years 2010 ZOSTER VACCINE (1 of 2) 2015 INFLUENZA VACCINE (#1) 2025 RSV VACCINE (60+ or ) (1 - 1-dose 75+ series) 01/03/2040 HEPATITIS B VACCINES Aged Out No long er eligible based on patient's age to complete this topic Insurance [facility] [address] [address] MEDICAID [place] Care Teams Machine Container Washer Relationship Specialty Start Date End Date Yakov Edwards MD [address] [place] [id number] PCP - General Family Practice 03/15/19
--- OUTSIDE RECORDS SUMMARY | 2025-02-27 11:32 | XMS_ITS | Clinical Summary ---
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 Active atorvastatin (LIPITOR) 10 mg tablet Take 10 mg by mouth daily with supper. Active mv,Ca,min/iron/ FA/guarana/caff (ONE-A-DAY WOMEN'S ACTIVE ORAL) Take by mouth. Activ e HYDROcodone-brooklynn taminophen (NORCO) 5-325 mg tabletIndicatio ns:Postoperativ e pain Take 1 Tablet by mouth every 4 hours as needed for Pain. Max Daily Amount: 6 Tablets 10 Tablet 9 Active fluticasone propionate (FLONASE) 50 mcg/spray [place], Suspension nasal inhaler Administer 2 Sprays in each nostril daily. 16 Gram 5 9 Active dicyclomine (BENTYL) 10 mg capsule TAKE 1 CAPSULE BY MOUTH 4 TIMES DAILY NEEDED FOR IRRITABLE BOWEL SYNDROME CRAMPS 0 Active Spiriva with HandiHaler 18 mcg capsule INHALE 1 PUFF BY MOUTH ONCE DAILY 0 Active Active Problems No known active problems Family History Medical History Relation Name Comments COPD Father Ashok Cancer Father Ashok Cancer Maternal Grandfather Cancer Maternal Grandmother COPD Mother Maria Fernanda Emphysema Mother Maria Fernanda High Cholesterol Mother Maria Fernanda Hypertension Mother Maria Fernanda GERD Sister 1 Anabela High Cholesterol Sister 1 Anabela GERD Sister 2 Nayla High Cholesterol Sister 2 Nayla Colon Cancer Neg Hx Relation Name Status Comments Father Ashok Maternal Grandfather Maternal Grandmother Mother Maria Fernanda Alive Sister 1 Anabela Alive Sister 2 Nayla Alive Social History Tobacco Use Types Packs/Day Years Used Date Smoking Tobacco: Every Day Cigarettes Smokeless Tobacco: Never Tobacco Cessation:Ready to Q uit: No; Counseling Given: Yes Alcohol Use Standard Drinks/Week Comments Not Currently 0 (1 standard drink = 0.6 oz pur e alcohol) Comments No Sex and Gender Information Value Date Recorded Sex Assigned at Not on file Legal Sex Female 9:47 AM CDT Gender Identity Not on file Sexual Orientation Not on file Last Filed Vital Signs Vital Sign Reading Time Taken Comments Blood Pressure 107/96 09/21/2020 11:51 AM GENERAL ASSIGNMENT REPORTER Pulse 78 09/21/2020 11:51 AM GENERAL ASSIGNMENT REPORTER Temperature 36.4 C (97.6 F) 03/31/2019 12:08 PM CDT Respiratory Rate 12 09/21/2020 11:51 AM GENERAL ASSIGNMENT REPORTER Oxygen Saturation 96% 09/21/2020 11:51 AM GENERAL ASSIGNMENT REPORTER Inhaled Oxygen Concentration - - Weight 70.3 kg (155 lb) 09/07/2020 1:01 PM GENERAL ASSIGNMENT REPORTER Height 154.9 cm (5' 1 ) 09/07/2020 1:01 PM GENERAL ASSIGNMENT REPORTER Body Mass Index 29.29 09/07/2020 1:01 PM GENERAL ASSIGNMENT REPORTER Plan of Treatment Health Maintenance Due Date [...] patient's age to complete this topic Insurance MEDICAID [facility] [address] Care Teams High School Business Teacher Relationship Specialty Start Date End Date Yakov Edwards MD [address] [place] [address] PCP - General Family Practice 03/15/19
[2025-02-27 11:40] VITALS: BP 144/81; PULSE 89; RESP 18; TEMP 36.6; O2SAT 98; BMI 35.2
--- NOTE | 2025-02-27 11:55 | W.ED.HA ---
HPI - Headache General: Chief Complaint: Headache Stated Complaint: high bp Time Seen by Provider: 02/27/25 11:47 Source: patient Mode of arrival: ambulatory Limitations: no limitations History of Present Illness: 60-year-old female who states she had woke up this morning 1 AM and had a headache she states is 6 out of 10 she took her blood pressure was 180s states she been nervous about it states she woke up again at 7 AM stated her headache improved still to mild headache some slight lightheadedness. She denies any chest pain she states that her symptoms are since resolved she denies headache at this point has had no slurred speech denies any difficulty walking. No history of hypertension in the past Associated symptoms: Deny chest pain, fever(s), nausea, rash or vomiting Related Data Home Medications ?Medication ?Instructions ?Recorded ?Confirmed loratadine 10 mg tablet (Allergy 10 mg PO DAILY 11/25/22 01/20/25 Relief (loratadine)) Previous Rx's ?Medication ?Instructions ?Recorded omeprazole 20 mg capsule,delayed 20 mg PO BID 30 days #60 caps 07/01/24 release budesonide-formoterol HFA 80 1 inh inhalation BID #10.2 grams 11/26/24 mcg-4.5 mcg/actuation aerosol inhaler (Symbicort) Allergies Allergy/AdvReac Type Severity Reaction Status Date / Time amoxicillin Allergy Severe ALGY-Anaphy Verified 02/27/25 11:43 laxis Sulfa (Sulfonamide Allergy ALGY-Anaphy Verified 02/27/25 11:43 Antibiotics) laxis Review of Systems Const: Denies: fever(s), chills, body aches or change in appetite Eyes: Denies: blurry vision or eye discomfort ENMT: Denies: throat pain or dental pain Card: Denies: chest pain Resp: Denies: dyspnea GI: Denies: abdominal pain, nausea, vomiting or diarrhea Musc: Denies: neck pain or back pain Skin/Breast: Denies: rash Neuro: Reports: headache(s) PFSH ED PFSH: Medical History Foot pain Viral URI Acute sinusitis Serous otitis media Fatty liver Nicotine dependence, cigarettes, uncomplicated GERD (gastroesophageal reflux disease) Hyperlipidemia Surgical History Hx of section H/O sinus surgery Family History Father Lung disease COPD Social History Smoking and tobacco/nicotine status: never used tobacco/nicotine Quit status (tobacco/nicotine): considering quitting Alcohol intake: never Substance/Drug Use: never Lives independently: Yes Household members: children Marital status: Current occupational status: employed 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 Current occupational exposures/hazards: 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) Do you think of yourself as: Straight/Heterosexual Current gender identity: Female Physical Exam Const: COMMON NORMALS: no acute distress, patient oriented x3 and healthy appearing HENMT: COMMON NORMALS: normocephalic and atraumatic HEAD & SCALP: normocephalic and atraumatic Eye: COMMON NORMALS: Equal, round and reactive pupils present and EOMs intact bilaterally PUPIL: Yes Equal, round and reactive pupils present Neck/C-Spine: COMMON NORMALS: full ROM and supple Chest: COMMONS NORMALS: normal inspection of the chest Resp: COMMON NORMALS: normal respiratory effort, No retractions, No use of accessory muscles and clear to auscultation bilaterally AUSCULTATION: clear to auscultation bilaterally Cardio: COMMON NORMALS: regular rate, regular rhythm and No murmurs present (Cardio) RATE: regular rate RHYTHM: regular rhythm Extremity: COMMON NORMALS: normal to inspection and full ROM Neuro: COMMON NORMALS: patient oriented x3, moves all extremities and no focal motor deficits CRANIAL NERVES: Yes CN normal except as noted SPEECH: speech normal GAIT: Yes Normal gait present MOTOR EXAM: 5/5 motor strength present throughout Psych: COMMON NORMALS: mental status grossly normal, Normal thought process present and cooperative THOUGHT PROCESS: Normal thought process present Skin: COMMON NORMALS: no rashes or lesions noted and no wounds GENERAL SKIN EXAM: no rashes or lesions noted Course Vital Signs: Vital signs: Vital Signs Temperature 97.9 F 02/27/25 11:40 Pulse Rate 89 02/27/25 11:40 Respiratory Rate 18 02/27/25 11:40 Blood Pressure 144/81 02/27/25 11:40 Pulse Oximetry 98 02/27/25 11:40 Oxygen Delivery Me thod Room Air 02/27/25 11:40 MDM - Headache Medical Decision Making Patient presents with headache she did have hypertension as well all since resolved patient is well-appearing here no signs of stroke she stable for discharge follow-up with PCP return if worsening. Medical Records I reviewed the patient's medical records. No radiology studies performed this visit EKG Data EKG 1: I personally reviewed and interpreted this EKG as follows: EKG interpretation date: 02/27/25 EKG interpretation time: 12:02 Interpretation: nsr hr [address] elevation qrs 87 qtc 403 Discharge Plan Discharge Patient Disposition: Home Clinical Impression: Headache, Hypertension Condition: Stable Prescriptions: No Action omeprazole 20 mg capsule,delayed release(DR/EC) 20 mg PO BID 30 Days Qty: 60 12RF loratadine [Allergy Relief (loratadine)] 10 mg tablet 10 mg PO DAILY budesonide-formoterol [Symbicort] 80-4.5 mcg/actuation HFA aerosol inhaler 1 inh inhalation BID Qty: 10.2 6RF Discharge Orders: Discharge ED (Routine); Ordered 02/27/25 Ordered By: Alrfed Stevens Referrals: Yakov Edwards MD [Primary Care Provider, Family Practice] - 4-7 days Discharge Diet: Advance as tolerated Discharge Activity: Resume usual activity Patient Instructions: Acute Headache (ED), Hypertension (ED) Print Language: Kinyarwanda Coding Level of Care Code ED Floor Manager for Macyg Ivan NIH stroke score NIHSS Level Of Consciousness - 1a: 0 Level Of Consciousness Questions - 1b: Both Correct Level Of Consciousness Commands - 1c: Both Correct Best Gaze - 2: Normal Visual M[place] - 3: No Visual Loss Facial Palsy - 4: Normal Motor Arm Right - 5: No Drift Motor Arm Left - 5: No Drift Motor Leg Right - 6: No Drift Motor Leg Left - 6: No Drift Limb Ataxia - 7: Absent Sensory - 8: Normal Best Language - 9: No Aphasia Dysarthia - 10: Normal Extinction And Inattention - 11: 0 Score Total Score: 0
--- NOTE | 2025-02-27 12:02 | ECG_ITS ---
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
[2025-02-27 12:28] VITALS: BP 142/79; PULSE 82; O2SAT 99
== END 2025-02-27 12:29 | disposition home or self-care (01) ==
PROVIDERS: Emergency Provider Emergency Medicine; PCP Family Medicine
DX: R51.9 Headache, unspecified (principal); I10 Essential (primary) hypertension; E78.5 Hyperlipidemia, unspecified
CPT/HCPCS: 93005; 93010; 99283

== ENCOUNTER → 2025-03-25 10:59 | Outpatient (BNVA) | payer BC, MEDICAID, SELFPAY | PROVIDERS: PCP Family Medicine; Visit Provider Physician Assistant | DX: M25.561 Pain in right knee (principal); R22.41 Localized swelling, mass and lump, right lower limb; M79.89 Other specified soft tissue disorders | CPT/HCPCS: 73560; 73565 ==

== ENCOUNTER 2025-03-31 15:45 | Outpatient (CLI) | payer BC, MEDICAID, SELFPAY ==
--- NOTE | 2025-03-31 16:00 | MR_ITS ---
WS: [id number] MRI RIGHT KNEE NONCONTRAST TECHNIQUE: Axial PD, coronal PD fat sat, coronal PD, sagittal PD, and sagittal PD fat-sat images obtained. CLINICAL INFORMATION: mass above knee on lateral COMPARISON: None. FINDINGS: Distal quadriceps and patella tendons are intact. Hypertrophic patella. ACL and PCL appear intact. Incidental enchondroma in the proximal tibia. Grade IV chondromalacia patella. Small amount of subchondral edema. Medial and lateral patellar retinaculum appear intact. Medial and lateral collateral ligaments are intact. Normal popliteus. Normal fibula head. Moderate tricompartmental arthritis. No acute appearing meniscal tears. Prominent tortuous vessels or varicosities in the area of concern in the subcutaneous soft tissues RIGHT lateral knee. Small amount of subcutaneous edema in this region. This extends cephalad of the [id number]. MR/MR knee RT wo con* [id number] IMPRESSION: 1. Moderate tricompartmental arthritis. 2. ACL and PCL appear intact. 3. Grade IV chondromalacia patella. 4. No acute appearing meniscal tears. Outbridge grading: grade IV: full-thickness cartilage loss with underlying bone reactive changes
== END 2025-03-31 15:46 | disposition home or self-care (01) ==
LOC: RAD 15:47
PROVIDERS: PCP Family Medicine; Visit Provider Physician Assistant
DX: M17.11 Unilateral primary osteoarthritis, right knee (principal); M22.41 Chondromalacia patellae, right knee
CPT/HCPCS: 73721

== ENCOUNTER → 2025-04-21 09:32 | Outpatient (BNVA) | payer BC, MEDICAID, SELFPAY | PROVIDERS: PCP Family Medicine; Visit Provider Family Medicine | DX: E11.9 Type 2 diabetes mellitus without complications (principal); K76.0 Fatty (change of) liver, not elsewhere classified | CPT/HCPCS: 80053; 80061; 83036; 83690; 85025 ==

== ENCOUNTER 2025-05-02 06:56 | Outpatient (CLI) | payer BC, MEDICAID, SELFPAY ==
--- NOTE | 2025-05-02 07:00 | US_ITS ---
WS: [id number] Complete ABDOMINAL ULTRASOUND HISTORY: abd pain COMPARISON: 09/19/2020 Liver: 14.6 cm in length. Coarse echotexture throughout the liver. Increased echogenicity within the liver. New progressive finding since the prior study. Surface of the liver is also very slightly irregular and undulating. This can be seen with early changes of cirrhosis. Adjacent to the gallbladder is a very small hypoechoic liver mass measuring 0.8 x 0.8 x 0.7 cm. Suspect this is probably a small cyst but really too small to characterize. Portal Vein: Normal hepatopetal flow with monophasic waveform. Gallbladder: Normally distended gallbladder with no stones or wall thickening. CBD: 0.4 cm Pancreas: Partially visualized. Head and tail are obscured by bowel gas. Right kidney: 9.8 cm x 4.4 x 4.1 cm. Cortex:1.0 cm. Normal size and echogenicity. No hydronephrosis or mass. Left kidney: 9.4 cm x 5.2 cm x 5.2 cm. Cortex: 1.1 cm. Normal size and echogenicity. No hydronephrosis or mass. Spleen: 9.2 cm. Normal size and echogenicity. Aorta and IVC: Unremarkable abdominal aorta and IVC. US/US abdomen complete* [id number] Impression: 1. Changes of hepatic steatosis with no independent duct dilatation. 2. Nodular, slightly undulating surface of the liver can be seen with cirrhosi s. 3. Very small hypoechoic mass in the liver adjacent to the gallbladder. Too sm all to characterize but has characteristics suggesting this is probably a cyst. This can be reevaluated by ultrasound and 3 months to confirm no increase in s ize. 4. Normal kidneys. 5. Negative gallbladder.
== END 2025-05-02 06:57 | disposition home or self-care (01) ==
PROVIDERS: PCP Family Medicine; Visit Provider Family Medicine
DX: K76.0 Fatty (change of) liver, not elsewhere classified (principal); R10.84 Generalized abdominal pain; K76.89 Other specified diseases of liver; R93.2 Abnormal findings on diagnostic imaging of liver and biliary tract; K74.69 Other cirrhosis of liver
CPT/HCPCS: 76700

== ENCOUNTER → 2025-06-08 18:54 | Outpatient (BNVA) | payer BC, MEDICAID, SELFPAY | PROVIDERS: PCP Family Medicine; Visit Provider Nurse Practitioner | DX: M54.50 Low back pain, unspecified (principal) | CPT/HCPCS: 81000; 87086 ==

== ENCOUNTER 2025-06-22 13:14 | Outpatient (CLI) | payer BC, MEDICAID, SELFPAY | END 2025-06-22 13:15 | disposition home or self-care (01) | LOC: SLEEP 13:15 | PROVIDERS: PCP Family Medicine; Referring Provider Family Medicine; Visit Provider Internal Medicine Pulmonary Disease | DX: G47.33 Obstructive sleep apnea (adult) (pediatric) (principal) | CPT/HCPCS: G0399 ==

== ENCOUNTER → 2025-07-26 08:47 | Outpatient (BNVA) | payer BC, SELFPAY | PROVIDERS: PCP Family Medicine; Visit Provider Nurse Practitioner | DX: R30.0 Dysuria (principal); R39.9 Unspecified symptoms and signs involving the genitourinary system | CPT/HCPCS: 81000; 87086 ==